=== PATIENT | female | born 1990 | race Caucasian/White ===

== ENCOUNTER 2023-01-08 17:47 | Emergency (ER) | payer OTHER ==
[~2023-01-08] VITALS: Ht 160 cm; Wt 56.8 kg
[2023-01-08] MEDS ORDERED: NEUR300C PO (18:10)
[2023-01-08] MEDS ORDERED: IBUP-1022 PO (21:14)
[2023-01-08 21:20] VITALS: BP 101/70; TEMP 98.1; O2SAT 100
== END 2023-01-08 21:30 | disposition home or self-care (01) ==
LOC: M ED 17:47
DX: M75.102 Unspecified rotator cuff tear or rupture of left shoulder, not specified as traumatic (principal); M19.90 Unspecified osteoarthritis, unspecified site; Z88.8 Allergy status to other drugs, medicaments and biological substances

== ENCOUNTER 2023-02-01 18:20 | Emergency (ER) | payer OTHER ==
[~2023-02-01] VITALS: Ht 160 cm; Wt 57.0 kg
[~2023-02-01 18:20] MED LIST: BENA25CA4 PO; IBUP-1022 PO; NEUR300C PO; PERCOCET PO
[2023-02-01 18:21] VITALS: BP 125/85; TEMP 98.6; O2SAT 99
== END 2023-02-01 21:42 | disposition left against medical advice (07) ==
LOC: M ED 18:20
DX: Z53.21 Procedure and treatment not carried out due to patient leaving prior to being seen by health care provider (principal)

== ENCOUNTER → 2023-02-10 | Outpatient (CLI) | payer OTHER ==
[2023-02-10 15:27] LABS: BASO % 0.3 % (0.0-1.0); EOS # 0.1 10^3/uL (0.0-0.5); EOS % 1.1 % (0.0-3.0); HEMATOCRIT 39.7 % (36.0-47.0); HEMOGLOBIN 13.7 g/dl (12.0-15.5); LYMPH # 2.2 10^3/uL (1.5-5.0); LYMPH % 34.7 % (24.0-44.0); MEAN CORPUSCULAR HEMOGLOBIN 32.5 pg (27.0-33.0); MEAN CORPUSCULAR HGB CONC 34.5 g/dl (32.0-36.5); MEAN CORPUSCULAR VOLUME 94.3 fl (80.0-96.0); MONO # 0.4 10^3/uL (0.0-0.8); MONO % 5.6 % (2.0-8.0); NEUTROPHILS # 3.6 10^3/uL (1.5-8.5); NEUTROPHILS % 58.1 % (36.0-66.0); PLATELET COUNT, AUTOMATED 299 10^3/uL (150-450); RED BLOOD COUNT 4.21 10^6/uL (4.00-5.40); WHITE BLOOD COUNT 6.3 10^3/uL (4.0-10.0)
[2023-02-10 15:55] LABS: ALBUMIN 3.9 G/DL (3.2-5.2); ALKALINE PHOSPHATASE 77 U/L (46-116); ALT/SGPT 13 U/L (7.0-40); AST/SGOT 14 U/L (<34); BILIRUBIN,TOTAL 1.5 MG/DL (0.3-1.2); BLOOD UREA NITROGEN 12 MG/DL (9-23); CALCIUM LEVEL 9.4 MG/DL (8.5-10.1); CARBON DIOXIDE LEVEL 29 MMOL/L (20-31); CHLORIDE LEVEL 106 MMOL/L (98-107); GLOMERULAR FILTRATION RATE > 60.0 (>60); GLUCOSE, FASTING 85 MG/DL (60-100); POTASSIUM SERUM 4.2 MMOL/L (3.5-5.1); SODIUM LEVEL 141 MMOL/L (136-145); TOTAL PROTEIN 6.9 G/DL (5.7-8.2)
== END ==
LOC: M LAB 14:36
PROVIDERS: ATTEND Physician Assistant
DX: R10.84 Generalized abdominal pain (principal)

== ENCOUNTER 2023-04-25 22:41 | Emergency (ER) | payer OTHER ==
[~2023-04-25] VITALS: Ht 160 cm; Wt 56.8 kg
[~2023-04-25 22:41] MED LIST changes: +LOPE-39 PO
[2023-04-25 23:01] VITALS: TEMP 98.9
[2023-04-25] MEDS ORDERED: METOPROLOL 5 MG/5 ML VIAL IV SCH (23:55)
[2023-04-26 00:12] LABS: BASO % 0.4 % (0.0-1.0); EOS # 0.5 10^3/uL (0.0-0.5); EOS % 5.9 % (0.0-3.0); HEMATOCRIT 37.6 % (36.0-47.0); HEMOGLOBIN 13.2 g/dl (12.0-15.5); LYMPH # 2.4 10^3/uL (1.5-5.0); LYMPH % 30.1 % (24.0-44.0); MEAN CORPUSCULAR HEMOGLOBIN 32.9 pg (27.0-33.0); MEAN CORPUSCULAR HGB CONC 35.1 g/dl (32.0-36.5); MEAN CORPUSCULAR VOLUME 93.8 fl (80.0-96.0); MONO # 0.5 10^3/uL (0.0-0.8); MONO % 6.5 % (2.0-8.0); NEUTROPHILS # 4.5 10^3/uL (1.5-8.5); NEUTROPHILS % 56.1 % (36.0-66.0); PLATELET COUNT, AUTOMATED 292 10^3/uL (150-450); RED BLOOD COUNT 4.01 10^6/uL (4.00-5.40)
[2023-04-26 00:14] LABS: INR 1.02; PARTIAL THROMBOPLASTIN TIME 28.2 SECONDS (24.8-34.2); PROTHROMBIN TIME 13.1 SECONDS (12.5-14.5)
[2023-04-26 00:20] VITALS: BP 113/79
[2023-04-26 00:24] LABS: CK-MB VALUE MASS 3.2 NG/ML (<3.6)
[2023-04-26 00:26] VITALS: O2SAT 98
[2023-04-26 00:26] LABS: ALBUMIN 3.9 G/DL (3.2-5.2); ALKALINE PHOSPHATASE 58 U/L (46-116); ALT/SGPT 16 U/L (7.0-40); AST/SGOT 34 U/L (<34); BILIRUBIN,DIRECT 0.3 MG/DL (<0.4); BLOOD UREA NITROGEN 10 MG/DL (9-23); CALCIUM LEVEL 9.1 MG/DL (8.5-10.1); CARBON DIOXIDE LEVEL 24 MMOL/L (20-31); CHLORIDE LEVEL 110 MMOL/L (98-107); CPK CREATINE PHOSPHOKINASE 752 U/L (34-145); CREATININE FOR GFR 0.54 MG/DL (0.55-1.30); GLOMERULAR FILTRATION RATE > 60.0 (>60); GLUCOSE, FASTING 96 MG/DL (60-100); MB/CK RELATIVE INDEX 0.42 (< OR =4); POTASSIUM SERUM 3.5 MMOL/L (3.5-5.1); SODIUM LEVEL 142 MMOL/L (136-145); TOTAL PROTEIN 6.5 G/DL (5.7-8.2)
[2023-04-26 00:28] LABS: FREE T4 1.03 NG/DL (0.89-1.76); THYROID STIMULATING HORMONE 1.272 uIU/ML (0.55-4.78)
[2023-04-26] MEDS ORDERED: atenoloL 25 MG TAB PO ONE (00:45)
[2023-04-26] MEDS ORDERED: ATEN25TA PO (00:48)
[2023-04-26] MEDS ORDERED: HOLTER MONITOR XX (00:53)
[2023-04-26 01:12] VITALS: BP 142/72
== END 2023-04-26 01:38 | disposition home or self-care (01) ==
LOC: EDBD 22:41 → M ED 22:41
DX: I47.10 Supraventricular tachycardia, unspecified (principal); G43.909 Migraine, unspecified, not intractable, without status migrainosus; F17.200 Nicotine dependence, unspecified, uncomplicated; Z88.8 Allergy status to other drugs, medicaments and biological substances; Z79.899 Other long term (current) drug therapy

== ENCOUNTER 2023-04-26 23:56 | Emergency (ER) | payer OTHER ==
[~2023-04-26] VITALS: Ht 160 cm; Wt 61.4 kg
[2023-04-27 00:31] LABS: BASO % 0.3 % (0.0-1.0); EOS # 0.6 10^3/uL (0.0-0.5); EOS % 9.5 % (0.0-3.0); HEMOGLOBIN 12.9 g/dl (12.0-15.5); LYMPH # 2.9 10^3/uL (1.5-5.0); LYMPH % 44.9 % (24.0-44.0); MEAN CORPUSCULAR HGB CONC 34.9 g/dl (32.0-36.5); MEAN CORPUSCULAR VOLUME 94.6 fl (80.0-96.0); MONO # 0.4 10^3/uL (0.0-0.8); MONO % 6.9 % (2.0-8.0); NEUTROPHILS # 2.5 10^3/uL (1.5-8.5); NEUTROPHILS % 38.2 % (36.0-66.0); PLATELET COUNT, AUTOMATED 287 10^3/uL (150-450); RED BLOOD COUNT 3.91 10^6/uL (4.00-5.40); WHITE BLOOD COUNT 6.4 10^3/uL (4.0-10.0)
[2023-04-27 00:55] LABS: BLOOD UREA NITROGEN 9 MG/DL (9-23); CALCIUM LEVEL 8.9 MG/DL (8.5-10.1); CARBON DIOXIDE LEVEL 23 MMOL/L (20-31); CHLORIDE LEVEL 108 MMOL/L (98-107); CK-MB VALUE MASS < 1.0 NG/ML (<3.6); CPK CREATINE PHOSPHOKINASE 799 U/L (34-145); CREATININE FOR GFR 0.55 MG/DL (0.55-1.30); GLOMERULAR FILTRATION RATE > 60.0 (>60); GLUCOSE, FASTING 108 MG/DL (60-100); MB/CK RELATIVE INDEX 0.12 (< OR =4); POTASSIUM SERUM 3.7 MMOL/L (3.5-5.1); SODIUM LEVEL 139 MMOL/L (136-145)
[2023-04-27 00:56] LABS: HCG, SERUM QUALITATIVE NEGATIVE (NEGATIVE)
[2023-04-27] MEDS ORDERED: ONDANSETRON 4MG 2ML VIAL IV ONE (01:25)
[2023-04-27 07:40] LABS: MAGNESIUM LEVEL 1.7 MG/DL (1.8-2.4)
[2023-04-27] MEDS ORDERED: MAG SULF 1GM/100ML (MAG RUN) 1 GM in IV 1 EA IV ONE (07:45)
[2023-04-27] MEDS ORDERED: NS 1,000 ML IV ONE (08:10)
[2023-04-27 09:35] VITALS: BP 94/51; TEMP 99.3; O2SAT 98
== END 2023-04-27 09:35 | disposition home or self-care (01) ==
LOC: M ED 23:56
DX: R00.2 Palpitations (principal); E83.42 Hypomagnesemia; F17.200 Nicotine dependence, unspecified, uncomplicated; Z88.8 Allergy status to other drugs, medicaments and biological substances; Z79.899 Other long term (current) drug therapy
CPT/HCPCS: 80048; 82550; 82553; 83735; 84484; 84703; 85025; 87486; 87581; 87633; 87798; 93005; 93041; 94760; 96374; 99285; J2405; J3475

== ENCOUNTER → 2023-04-26 | Outpatient (CLI) | payer OTHER ==
[~2023-04-26] MED LIST changes: +ATEN25TA PO; +HOLTER MONITOR XX
== END ==
LOC: M RAD 15:15
PROVIDERS: ATTEND Emergency Medicine
DX: R00.2 Palpitations (principal)

== ENCOUNTER 2023-05-01 04:21 | Emergency (ER) | payer OTHER ==
[~2023-05-01] VITALS: Ht 160 cm; Wt 56.8 kg
[2023-05-01 04:30] VITALS: BP 118/59; TEMP 98.6; O2SAT 97
[2023-05-01 05:07] LABS: BASO % 0.5 % (0.0-1.0); EOS # 0.4 10^3/uL (0.0-0.5); EOS % 6.1 % (0.0-3.0); HEMATOCRIT 37.2 % (36.0-47.0); HEMOGLOBIN 13.1 g/dl (12.0-15.5); LYMPH % 50.4 % (24.0-44.0); MEAN CORPUSCULAR HEMOGLOBIN 33.1 pg (27.0-33.0); MEAN CORPUSCULAR HGB CONC 35.2 g/dl (32.0-36.5); MEAN CORPUSCULAR VOLUME 93.9 fl (80.0-96.0); MONO # 0.4 10^3/uL (0.0-0.8); MONO % 6.2 % (2.0-8.0); NEUTROPHILS # 2.2 10^3/uL (1.5-8.5); NEUTROPHILS % 36.6 % (36.0-66.0); PLATELET COUNT, AUTOMATED 299 10^3/uL (150-450); RED BLOOD COUNT 3.96 10^6/uL (4.00-5.40); WHITE BLOOD COUNT 5.9 10^3/uL (4.0-10.0)
[2023-05-01 05:30] LABS: BLOOD UREA NITROGEN 12 MG/DL (9-23); CALCIUM LEVEL 8.9 MG/DL (8.5-10.1); CARBON DIOXIDE LEVEL 24 MMOL/L (20-31); CHLORIDE LEVEL 110 MMOL/L (98-107); CK-MB VALUE MASS < 1.0 NG/ML (<3.6); CREATININE FOR GFR 0.51 MG/DL (0.55-1.30); GLOMERULAR FILTRATION RATE > 60.0 (>60); GLUCOSE, FASTING 90 MG/DL (60-100); POTASSIUM SERUM 3.9 MMOL/L (3.5-5.1); SODIUM LEVEL 142 MMOL/L (136-145)
[2023-05-01 05:34] LABS: CPK CREATINE PHOSPHOKINASE 82 U/L (34-145); MB/CK RELATIVE INDEX 1.21 (< OR =4)
== END 2023-05-01 06:28 | disposition left against medical advice (07) ==
LOC: M ED 04:21 → EDBD 04:21 → M ED 06:28
DX: Z53.21 Procedure and treatment not carried out due to patient leaving prior to being seen by health care provider (principal)

== ENCOUNTER 2023-05-04 07:57 | Emergency (ER) | payer OTHER ==
[2023-05-04 11:25] VITALS: TEMP 97.4
[2023-05-04 13:03] LABS: HEMATOCRIT 42.1 % (36.0-47.0); MEAN CORPUSCULAR HEMOGLOBIN 32.8 pg (27.0-33.0); MEAN CORPUSCULAR HGB CONC 35.6 g/dl (32.0-36.5); MEAN CORPUSCULAR VOLUME 92.1 fl (80.0-96.0); PLATELET COUNT, AUTOMATED 316 10^3/uL (150-450); RED BLOOD COUNT 4.57 10^6/uL (4.00-5.40); WHITE BLOOD COUNT 5.9 10^3/uL (4.0-10.0)
[2023-05-04 13:34] LABS: BLOOD UREA NITROGEN 12 MG/DL (9-23); CALCIUM LEVEL 9.7 MG/DL (8.5-10.1); CARBON DIOXIDE LEVEL 22 MMOL/L (20-31); CHLORIDE LEVEL 105 MMOL/L (98-107); CK-MB VALUE MASS < 1.0 NG/ML (<3.6); CREATININE FOR GFR 0.59 MG/DL (0.55-1.30); GLOMERULAR FILTRATION RATE > 60.0 (>60); GLUCOSE, FASTING 94 MG/DL (60-100); SODIUM LEVEL 136 MMOL/L (136-145)
[2023-05-04 13:35] LABS: CPK CREATINE PHOSPHOKINASE 44 U/L (34-145); MB/CK RELATIVE INDEX 2.27 (< OR =4)
[2023-05-04 14:15] VITALS: BP 98/75; O2SAT 99
== END 2023-05-04 15:11 | disposition home or self-care (01) ==
LOC: M ED 07:57
DX: R00.2 Palpitations (principal); I51.7 Cardiomegaly; Z88.8 Allergy status to other drugs, medicaments and biological substances

== ENCOUNTER 2023-05-19 15:58 | Emergency (ER) | payer OTHER ==
[~2023-05-19] VITALS: Ht 160 cm; Wt 54.5 kg
[2023-05-19 16:08] VITALS: BP 110/75; TEMP 97.9; O2SAT 99
[2023-05-19] MEDS ORDERED: SOD175SO (16:13)
[2023-05-19] MEDS ORDERED: OMEP-173 (16:13)
[2023-05-19] MEDS ORDERED: MIRT1TAB15 (16:13)
== END 2023-05-19 16:14 | disposition left against medical advice (07) ==
LOC: EDBD 15:58 → M ED 15:58
DX: Z53.21 Procedure and treatment not carried out due to patient leaving prior to being seen by health care provider (principal)

== ENCOUNTER 2023-05-25 01:54 | Emergency (ER) | payer OTHER ==
[~2023-05-25] VITALS: Ht 160 cm; Wt 54.5 kg
[~2023-05-25 01:54] MED LIST changes: +MIRT1TAB15; +OMEP-173; +SOD175SO
[2023-05-25] MEDS ORDERED: LIDOCAINE 5% (LIDODERM) PATCH TD ONE (06:10)
[2023-05-25] MEDS ORDERED: diazePAM 5MG TABLET PO ONE (06:10)
[2023-05-25] MEDS ORDERED: KETOROLAC 30 MG/ML 1ML VIAL IV ONE (06:10)
[2023-05-25 06:41] LABS: HCG, SERUM QUALITATIVE NEGATIVE (NEGATIVE)
[2023-05-25] MEDS ORDERED: KETOROLAC 30 MG/ML 1ML VIAL IM ONE (06:55)
[2023-05-25] MEDS ORDERED: VALI5TAB PO (10:51)
[2023-05-25] MEDS ORDERED: IBUP-1114 PO (10:51)
[2023-05-25] MEDS ORDERED: LIDO5DIS41 TOP (10:51)
[2023-05-25] MEDS ORDERED: ACET325C5 PO (10:51)
[2023-05-25 11:22] VITALS: BP 97/60; TEMP 97.3; O2SAT 99
[2023-05-26] MEDS ORDERED: LIDOCAINE 2% 100MG/5ML SDV (FOR ANES.) As Ordered ONE (09:41)
[2023-05-26] MEDS ORDERED: propofoL 200 MG/20 ML VIAL As Ordered ONE (09:41)
[2023-05-26] MEDS ORDERED: GLYCOPYRROLATE INJ 0.2 MG/ML 2 ML VIAL As Ordered ONE (09:41)
== END 2023-05-25 11:30 | disposition home or self-care (01) ==
LOC: M ED 01:54
DX: M51.16 Intervertebral disc disorders with radiculopathy, lumbar region (principal); I47.10 Supraventricular tachycardia, unspecified; Z79.899 Other long term (current) drug therapy; Z79.1 Long term (current) use of non-steroidal anti-inflammatories (NSAID); Z88.1 Allergy status to other antibiotic agents
CPT/HCPCS: 72148; 84703; 96374; 99284; J1885

== ENCOUNTER 2023-05-26 08:59 | Day surgery (SDC) | payer OTHER ==
[~2023-05-26] VITALS: Ht 160 cm; Wt 53.2 kg
[~2023-05-26 08:59] MED LIST changes: +ACET325C5 PO; +IBUP-1114 PO; +LIDO5DIS41 TOP; +NS 1,000 ML IV ONE; +VALI5TAB PO
[2023-05-26 10:28] VITALS: TEMP 98.5
[2023-05-26 10:51] VITALS: BP 110/76; O2SAT 100
== END 2023-05-26 11:13 | disposition home or self-care (01) ==
LOC: M OPP 08:59
PROVIDERS: ATTEND Internal Medicine Gastroenterology
DX: K64.4 Residual hemorrhoidal skin tags (principal); K64.8 Other hemorrhoids; K92.1 Melena; K29.70 Gastritis, unspecified, without bleeding; R13.10 Dysphagia, unspecified; Z79.899 Other long term (current) drug therapy; Z88.5 Allergy status to narcotic agent

== ENCOUNTER → 2023-06-09 | Outpatient (CLI) | payer OTHER ==
[~2023-06-09] MED LIST changes: -NS 1,000 ML IV ONE
== END ==
LOC: M RAD 18:09
PROVIDERS: ATTEND Orthopaedic Surgery
DX: S43.62XA Sprain of left sternoclavicular joint, initial encounter (principal); Y93.9 Activity, unspecified; Y92.9 Unspecified place or not applicable

== ENCOUNTER → 2023-06-10 | Outpatient (CLI) | payer OTHER | LOC: M RAD 14:24 | PROVIDERS: ATTEND Physician Assistant Medical | DX: M25.512 Pain in left shoulder (principal) ==

== ENCOUNTER 2023-06-16 07:53 | Emergency (ER) | payer OTHER ==
[~2023-06-16] VITALS: Ht 160 cm; Wt 57.5 kg
[2023-06-16] MEDS ORDERED: OMEP40CA5 PO (08:04)
[2023-06-16] MEDS ORDERED: AMOX500C PO (08:04)
[2023-06-16] MEDS ORDERED: CLAR500T97 PO (08:04)
[2023-06-16 08:29] LABS: BASO % 0.2 % (0.0-1.0); EOS % 0.7 % (0.0-3.0); HEMATOCRIT 38.5 % (36.0-47.0); HEMOGLOBIN 13.4 g/dl (12.0-15.5); LYMPH # 2.2 10^3/uL (1.5-5.0); LYMPH % 35.5 % (24.0-44.0); MEAN CORPUSCULAR HEMOGLOBIN 32.3 pg (27.0-33.0); MEAN CORPUSCULAR HGB CONC 34.8 g/dl (32.0-36.5); MEAN CORPUSCULAR VOLUME 92.8 fl (80.0-96.0); MONO # 0.4 10^3/uL (0.0-0.8); MONO % 5.9 % (2.0-8.0); NEUTROPHILS # 3.5 10^3/uL (1.5-8.5); NEUTROPHILS % 57.5 % (36.0-66.0); PLATELET COUNT, AUTOMATED 282 10^3/uL (150-450); RED BLOOD COUNT 4.15 10^6/uL (4.00-5.40); WHITE BLOOD COUNT 6.1 10^3/uL (4.0-10.0)
[2023-06-16] MEDS: NS 1,000 ML IV ONE (08:31)
[2023-06-16] MEDS: MORPHINE 2 MG/ML 1ML VIAL IV ONE (08:36)
[2023-06-16 08:40] LABS: INR 0.98; PROTHROMBIN TIME 12.7 SECONDS (12.5-14.5)
[2023-06-16 08:41] LABS: PARTIAL THROMBOPLASTIN TIME 26.9 SECONDS (24.8-34.2)
[2023-06-16] MEDS ORDERED: MELO15TA28 PO (08:43)
[2023-06-16] MEDS ORDERED: ONDA4TAB6 PO (08:43)
[2023-06-16] MEDS ORDERED: MAGN400C2 PO (08:43)
[2023-06-16 09:02] LABS: CK-MB VALUE MASS < 1.0 NG/ML (<3.6)
[2023-06-16 09:04] LABS: CPK CREATINE PHOSPHOKINASE 84 U/L (34-145); MB/CK RELATIVE INDEX 1.19 (< OR =4)
[2023-06-16 09:06] LABS: FREE T4 1.05 NG/DL (0.89-1.76); THYROID STIMULATING HORMONE 1.469 uIU/ML (0.55-4.78)
[2023-06-16 09:07] LABS: ALBUMIN 4.1 G/DL (3.2-5.2); ALKALINE PHOSPHATASE 60 U/L (46-116); ALT/SGPT 16 U/L (7.0-40); AST/SGOT 14 U/L (<34); BILIRUBIN,DIRECT 0.5 MG/DL (<0.4); BILIRUBIN,TOTAL 1.5 MG/DL (0.3-1.2); BLOOD UREA NITROGEN < 5 MG/DL (9-23); CALCIUM LEVEL 9.4 MG/DL (8.5-10.1); CARBON DIOXIDE LEVEL 28 MMOL/L (20-31); CHLORIDE LEVEL 106 MMOL/L (98-107); CREATININE FOR GFR 0.79 MG/DL (0.55-1.30); GLOMERULAR FILTRATION RATE > 60.0 (>60); GLUCOSE, FASTING 102 MG/DL (60-100); MAGNESIUM LEVEL 1.8 MG/DL (1.8-2.4); POTASSIUM SERUM 3.6 MMOL/L (3.5-5.1); SODIUM LEVEL 140 MMOL/L (136-145); TOTAL PROTEIN 6.8 G/DL (5.7-8.2)
[2023-06-16] MEDS ORDERED: ISOVUE-370 76% 100ML VIAL As Ordered ONE (09:22)
[2023-06-16 10:11] LABS: LIPASE 26 U/L (12-53)
[2023-06-16] MEDS: MORPHINE 4 MG/ML 1ML VIAL IV ONE (11:17)
[2023-06-16 11:59] LABS: CK-MB VALUE MASS < 1.0 NG/ML (<3.6); CPK CREATINE PHOSPHOKINASE 70 U/L (34-145); MB/CK RELATIVE INDEX 1.42 (< OR =4)
[2023-06-16] MEDS ORDERED: ATEN25TA PO (13:36)
[2023-06-16] MEDS ORDERED: MAGN400T2 PO (13:36)
[2023-06-16] MEDS ORDERED: HOME MED LIST COMPLETE! XX SCH (13:40)
[2023-06-16 14:11] LABS: CK-MB VALUE MASS < 1.0 NG/ML (<3.6)
[2023-06-16 14:12] LABS: CPK CREATINE PHOSPHOKINASE 83 U/L (34-145)
[2023-06-16 15:00] VITALS: BP 96/69; TEMP 98.1; O2SAT 96
== END 2023-06-16 15:10 | disposition home or self-care (01) ==
LOC: EDBD 07:53 → M ED 07:53
DX: R00.0 Tachycardia, unspecified (principal); Z86.19 Personal history of other infectious and parasitic diseases; Z88.8 Allergy status to other drugs, medicaments and biological substances
CPT/HCPCS: 71045; 71275; 74177; 74181; 80048; 80076; 81001; 82550; 82553; 83690; 83735; 84100; 84439; 84443; 84484; 84702; 85025; 85610; 85730; 93005; 93041; 94760; 96361; 96374; 96376; 99285; Q9967

== ENCOUNTER 2023-06-19 22:42 | Emergency (ER) | payer OTHER ==
[~2023-06-19] VITALS: Ht 160 cm; Wt 54.5 kg
[~2023-06-19 22:42] MED LIST changes: +AMOX500C PO; +CLAR500T97 PO; +MAGN400C2 PO; +MAGN400T2 PO; +MELO15TA28 PO; +OMEP40CA5 PO; +ONDA4TAB6 PO
[2023-06-20 00:28] LABS: BASO % 0.4 % (0.0-1.0); EOS # 0.1 10^3/uL (0.0-0.5); HEMATOCRIT 35.1 % (36.0-47.0); HEMOGLOBIN 12.9 g/dl (12.0-15.5); LYMPH # 2.2 10^3/uL (1.5-5.0); LYMPH % 43.2 % (24.0-44.0); MEAN CORPUSCULAR HEMOGLOBIN 33.1 pg (27.0-33.0); MEAN CORPUSCULAR HGB CONC 36.8 g/dl (32.0-36.5); MONO # 0.3 10^3/uL (0.0-0.8); MONO % 6.3 % (2.0-8.0); NEUTROPHILS # 2.5 10^3/uL (1.5-8.5); NEUTROPHILS % 48.9 % (36.0-66.0); PLATELET COUNT, AUTOMATED 252 10^3/uL (150-450); WHITE BLOOD COUNT 5.1 10^3/uL (4.0-10.0)
[2023-06-20 00:35] LABS: CK-MB VALUE MASS < 1.0 NG/ML (<3.6)
[2023-06-20 00:37] LABS: BLOOD UREA NITROGEN 6 MG/DL (9-23); CALCIUM LEVEL 9.1 MG/DL (8.5-10.1); CARBON DIOXIDE LEVEL 23 MMOL/L (20-31); CHLORIDE LEVEL 110 MMOL/L (98-107); CPK CREATINE PHOSPHOKINASE 72 U/L (34-145); CREATININE FOR GFR 0.63 MG/DL (0.55-1.30); GLOMERULAR FILTRATION RATE > 60.0 (>60); GLUCOSE, FASTING 95 MG/DL (60-100); MB/CK RELATIVE INDEX 1.38 (< OR =4); POTASSIUM SERUM 3.5 MMOL/L (3.5-5.1); SODIUM LEVEL 141 MMOL/L (136-145)
[2023-06-20 01:29] LABS: LIPASE 33 U/L (12-53)
[2023-06-20 01:31] LABS: ALKALINE PHOSPHATASE 59 U/L (46-116); ALT/SGPT 11 U/L (7.0-40); AST/SGOT 10 U/L (<34); BILIRUBIN,DIRECT 0.4 MG/DL (<0.4); BILIRUBIN,TOTAL 1.1 MG/DL (0.3-1.2); TOTAL PROTEIN 6.9 G/DL (5.7-8.2)
[2023-06-20] MEDS: LORazepam 2 MG/ML 1ML VIAL IV STA ×2 (02:34→08:05)
[2023-06-20] MEDS: METOCLOPRAMIDE INJ 10MG/2ML VIAL IV ONE (02:35)
[2023-06-20 03:21] LABS: CK-MB VALUE MASS < 1.0 NG/ML (<3.6)
[2023-06-20 03:23] LABS: CPK CREATINE PHOSPHOKINASE 68 U/L (34-145); MB/CK RELATIVE INDEX 1.47 (< OR =4)
[2023-06-20 06:57] LABS: ALBUMIN 3.1 G/DL (3.2-5.2); BILIRUBIN,DIRECT 0.2 MG/DL (<0.4); BILIRUBIN,TOTAL 0.9 MG/DL (0.3-1.2); TOTAL PROTEIN 5.5 G/DL (5.7-8.2)
[2023-06-20 10:05] VITALS: BP 96/62; TEMP 98.6; O2SAT 98
== END 2023-06-20 10:20 | disposition home or self-care (01) ==
LOC: EDBD 22:42 → M ED 22:42
DX: F43.0 Acute stress reaction (principal); R10.10 Upper abdominal pain, unspecified; I45.10 Unspecified right bundle-branch block; Z88.8 Allergy status to other drugs, medicaments and biological substances; Z79.2 Long term (current) use of antibiotics; Z79.83 Long term (current) use of bisphosphonates; Z79.899 Other long term (current) drug therapy
CPT/HCPCS: 71045; 74181; 76705; 80048; 80076; 82550; 82553; 83690; 84484; 85025; 93005; 93041; 94760; 96374; 96375; 99285; J2060; J2765

== ENCOUNTER 2023-06-28 05:26 | Emergency (ER) | payer OTHER ==
[~2023-06-28] VITALS: Ht 160 cm; Wt 52.3 kg
[2023-06-28 05:32] VITALS: TEMP 98.9
[2023-06-28 07:24] LABS: BASO % 0.2 % (0.0-1.0); EOS # 0.1 10^3/uL (0.0-0.5); EOS % 1.6 % (0.0-3.0); HEMATOCRIT 34.9 % (36.0-47.0); HEMOGLOBIN 12.3 g/dl (12.0-15.5); LYMPH # 2.1 10^3/uL (1.5-5.0); LYMPH % 42.3 % (24.0-44.0); MEAN CORPUSCULAR HGB CONC 35.2 g/dl (32.0-36.5); MEAN CORPUSCULAR VOLUME 93.6 fl (80.0-96.0); MONO # 0.3 10^3/uL (0.0-0.8); MONO % 6.6 % (2.0-8.0); NEUTROPHILS # 2.4 10^3/uL (1.5-8.5); NEUTROPHILS % 49.3 % (36.0-66.0); PLATELET COUNT, AUTOMATED 243 10^3/uL (150-450); RED BLOOD COUNT 3.73 10^6/uL (4.00-5.40); WHITE BLOOD COUNT 4.9 10^3/uL (4.0-10.0)
[2023-06-28 07:31] LABS: FREE T4 0.93 NG/DL (0.89-1.76); THYROID STIMULATING HORMONE 1.102 uIU/ML (0.55-4.78)
[2023-06-28] MEDS: NS 1,000 ML IV ONE (07:41)
[2023-06-28 07:52] LABS: BLOOD UREA NITROGEN < 5 MG/DL (9-23); CALCIUM LEVEL 8.6 MG/DL (8.5-10.1); CARBON DIOXIDE LEVEL 24 MMOL/L (20-31); CHLORIDE LEVEL 111 MMOL/L (98-107); CREATININE FOR GFR 0.61 MG/DL (0.55-1.30); GLOMERULAR FILTRATION RATE > 60.0 (>60); GLUCOSE, FASTING 90 MG/DL (60-100); POTASSIUM SERUM 3.4 MMOL/L (3.5-5.1); SODIUM LEVEL 141 MMOL/L (136-145)
[2023-06-28] MEDS: atenoloL 25 MG TAB PO ONE (08:06)
[2023-06-28 08:55] LABS: CK-MB VALUE MASS < 1.0 NG/ML (<3.6)
[2023-06-28 08:56] LABS: CPK CREATINE PHOSPHOKINASE 45 U/L (34-145); MB/CK RELATIVE INDEX 2.22 (< OR =4)
[2023-06-28 10:15] VITALS: BP 92/54; O2SAT 99
[2023-06-28] MEDS ORDERED: HOLTER MONITOR XX (10:29)
== END 2023-06-28 10:45 | disposition home or self-care (01) ==
LOC: M ED 05:26
DX: K92.2 Gastrointestinal hemorrhage, unspecified (principal); I47.9 Paroxysmal tachycardia, unspecified; K21.9 Gastro-esophageal reflux disease without esophagitis; Z88.8 Allergy status to other drugs, medicaments and biological substances

== ENCOUNTER 2023-07-26 16:33 | Inpatient (IN) | payer OTHER ==
[~2023-07-26] VITALS: Ht 160 cm; Wt 53.1 kg
[2023-07-26 17:59] LABS: BASO % 0.2 % (0.0-1.0); EOS % 0.5 % (0.0-3.0); HEMATOCRIT 38.9 % (36.0-47.0); HEMOGLOBIN 13.5 g/dl (12.0-15.5); LYMPH # 1.6 10^3/uL (1.5-5.0); LYMPH % 28.3 % (24.0-44.0); MEAN CORPUSCULAR HEMOGLOBIN 32.1 pg (27.0-33.0); MEAN CORPUSCULAR HGB CONC 34.7 g/dl (32.0-36.5); MEAN CORPUSCULAR VOLUME 92.6 fl (80.0-96.0); MONO # 0.4 10^3/uL (0.0-0.8); MONO % 6.8 % (2.0-8.0); NEUTROPHILS # 3.7 10^3/uL (1.5-8.5); PLATELET COUNT, AUTOMATED 234 10^3/uL (150-450); WHITE BLOOD COUNT 5.8 10^3/uL (4.0-10.0)
[2023-07-26 18:12] LABS: LIPASE 57 U/L (12-53)
[2023-07-26 18:15] LABS: ALKALINE PHOSPHATASE 63 U/L (46-116); ALT/SGPT 12 U/L (7.0-40); AST/SGOT 20 U/L (<34); BILIRUBIN,DIRECT 0.8 MG/DL (<0.4); BILIRUBIN,TOTAL 2.8 MG/DL (0.3-1.2); BLOOD UREA NITROGEN 9 MG/DL (9-23); CALCIUM LEVEL 8.9 MG/DL (8.5-10.1); CARBON DIOXIDE LEVEL 26 MMOL/L (20-31); CHLORIDE LEVEL 104 MMOL/L (98-107); CREATININE FOR GFR 0.61 MG/DL (0.55-1.30); GLOMERULAR FILTRATION RATE > 60.0 (>60); GLUCOSE, FASTING 72 MG/DL (60-100); POTASSIUM SERUM 3.9 MMOL/L (3.5-5.1); SODIUM LEVEL 136 MMOL/L (136-145); TOTAL PROTEIN 6.9 G/DL (5.7-8.2)
[2023-07-26] MEDS ORDERED: LEXA1TAB (19:29)
[2023-07-26] MEDS ORDERED: CLON0.5T2 (19:29)
[2023-07-26] MEDS: METOCLOPRAMIDE INJ 10MG/2ML VIAL IV ONE (21:29)
[2023-07-26] MEDS: MORPHINE 2 MG/ML 1ML VIAL IV ONE (21:29)
[2023-07-26] MEDS: NS 1,000 ML IV ONE (21:30)
[2023-07-26] MEDS: GASTROGRAFIN SOLUTION 30ML PO SCH (21:40)
[2023-07-26] MEDS ORDERED: ISOVUE-370 76% 100ML VIAL As Ordered ONE (22:38)
[2023-07-27] MEDS: PROMETHAZINE 25MG/ML 1ML VIAL IV ONE (02:37)
[2023-07-27] MEDS: MORPHINE 2 MG/ML 1ML VIAL IV ONE (02:38)
[2023-07-27] MEDS ORDERED: IBUPROFEN 400MG TAB PO PRN (03:30)
[2023-07-27] MEDS ORDERED: KETOROLAC 30 MG/ML 1ML VIAL IV PRN (03:30)
[2023-07-27] MEDS: LR 1,000 ML IV SCH (04:54)
[2023-07-27] MEDS ORDERED: LEXA1TAB PO (06:20)
[2023-07-27] MEDS ORDERED: CLON0.5T2 PO (06:20)
[2023-07-27] MEDS ORDERED: MULT-40 PO (06:20)
[2023-07-27] MEDS ORDERED: HOME MED LIST COMPLETE! XX SCH (06:25)
[2023-07-27] MEDS ORDERED: LORazepam 2 MG/ML 1ML VIAL IV STA (08:13)
[2023-07-27] MEDS: LORazepam 2 MG/ML 1ML VIAL IV STA (08:26)
[2023-07-27] MEDS: PIPERACILLIN/TAZOBACTAM SOD 4.5 GM in D5W MINI-BAG PLUS 50 ML IV SCH (09:26)
[2023-07-27 10:56] VITALS: BP 102/67; TEMP 98.1; O2SAT 100
[2023-07-27] MEDS: KETOROLAC 30 MG/ML 1ML VIAL IV PRN (13:36)
[2023-07-27] MEDS: PANTOPRAZOLE 40MG TAB (PROTONIX) PO SCH (13:50)
[2023-07-27 14:30] VITALS: BP 102/65; TEMP 98.1; O2SAT 100
[2023-07-27] MEDS: SUCRALFATE 1 GM TAB PO SCH (18:33)
[2023-07-28 06:00] VITALS: BP 105/68; TEMP 98.2; O2SAT 100
[2023-07-28 06:32] LABS: HEMATOCRIT 33.8 % (36.0-47.0); HEMOGLOBIN 11.6 g/dl (12.0-15.5); MEAN CORPUSCULAR HEMOGLOBIN 32.7 pg (27.0-33.0); MEAN CORPUSCULAR HGB CONC 34.3 g/dl (32.0-36.5); MEAN CORPUSCULAR VOLUME 95.2 fl (80.0-96.0); PLATELET COUNT, AUTOMATED 207 10^3/uL (150-450); RED BLOOD COUNT 3.55 10^6/uL (4.00-5.40); WHITE BLOOD COUNT 4.9 10^3/uL (4.0-10.0)
[2023-07-28 06:55] LABS: PROCALCITONIN <0.04 ng/ml
[2023-07-28 06:56] LABS: ALBUMIN 3.3 G/DL (3.2-5.2); ALKALINE PHOSPHATASE 46 U/L (46-116); ALT/SGPT 10 U/L (7.0-40); AST/SGOT 11 U/L (<34); BILIRUBIN,TOTAL 2.4 MG/DL (0.3-1.2); BLOOD UREA NITROGEN < 5 MG/DL (9-23); CALCIUM LEVEL 8.4 MG/DL (8.5-10.1); CARBON DIOXIDE LEVEL 25 MMOL/L (20-31); CHLORIDE LEVEL 109 MMOL/L (98-107); CREATININE FOR GFR 0.58 MG/DL (0.55-1.30); GLOMERULAR FILTRATION RATE > 60.0 (>60); GLUCOSE, FASTING 83 MG/DL (60-100); MAGNESIUM LEVEL 1.7 MG/DL (1.8-2.4); POTASSIUM SERUM 3.5 MMOL/L (3.5-5.1); SODIUM LEVEL 142 MMOL/L (136-145); TOTAL PROTEIN 5.2 G/DL (5.7-8.2)
[2023-07-28] MEDS: PROMETHAZINE 25 MG TAB PO PRN (10:46)
[2023-07-28] MEDS: ACETAMINOPHEN TAB 650MG DOSE (2X325MG) PO PRN (10:50)
[2023-07-28] MEDS ORDERED: PERCOCET 5MG/325MG TAB PO PRN (11:00)
[2023-07-28] MEDS: MAG SULF 1GM/100ML (MAG RUN) 1 GM in IV 1 EA IV SCH (11:20)
[2023-07-28 14:00] VITALS: BP 98/64; TEMP 98.1; O2SAT 99
[2023-07-28] MEDS ORDERED: SUCR1TA PO (14:26)
[2023-07-28] MEDS ORDERED: LOPE2CAP PO (14:26)
[2023-07-28] MEDS ORDERED: PANT40TA29 PO (14:26)
[2023-07-28] MEDS ORDERED: PROM25TA12 PO (14:26)
== END 2023-07-28 16:35 | disposition home or self-care (01) | DRG 392 ==
LOC: M ED 16:33 → M ED INP 07-27 03:26 → M MSPAV 07-27 11:00
PROVIDERS: ADMIT Internal Medicine; ATTEND Student in an Organized Health Care Education/Training Program
DX: K29.70 Gastritis, unspecified, without bleeding (principal); R10.11 Right upper quadrant pain; Z98.1 Arthrodesis status; Z90.49 Acquired absence of other specified parts of digestive tract; Z79.899 Other long term (current) drug therapy; E80.6 Other disorders of bilirubin metabolism

== ENCOUNTER → 2023-09-15 | Outpatient (REF) | payer OTHER ==
[~2023-09-15] MED LIST changes: +CLON0.5T2; +CLON0.5T2 PO; +LEXA1TAB; +LEXA1TAB PO; +LOPE2CAP PO; +MULT-40 PO; +PANT40TA29 PO; +PROM25TA12 PO; +SUCR1TA PO
== END ==
LOC: M LAB REF 14:43
PROVIDERS: ATTEND Nurse Practitioner Family
DX: B96.81 Helicobacter pylori [H. pylori] as the cause of diseases classified elsewhere (principal)

== ENCOUNTER 2023-11-16 15:29 | Observation (INO) | payer OTHER ==
[~2023-11-16] VITALS: Ht 160 cm; Wt 60.6 kg
[~2023-11-16 15:29] MED LIST changes: +ONDA-282 PO; -ONDA4TAB6 PO
[2023-11-16] MEDS ORDERED: BUPR15TASR PO (15:49)
[2023-11-16 17:21] LABS: BASO % 0.2 % (0.0-1.0); EOS % 0.6 % (0.0-3.0); HEMATOCRIT 39.5 % (36.0-47.0); HEMOGLOBIN 13.2 g/dl (12.0-15.5); LYMPH # 2.2 10^3/uL (1.5-5.0); LYMPH % 43.3 % (24.0-44.0); MEAN CORPUSCULAR HEMOGLOBIN 31.7 pg (27.0-33.0); MEAN CORPUSCULAR HGB CONC 33.4 g/dl (32.0-36.5); MONO # 0.4 10^3/uL (0.0-0.8); MONO % 6.8 % (2.0-8.0); NEUTROPHILS # 2.5 10^3/uL (1.5-8.5); NEUTROPHILS % 49.1 % (36.0-66.0); PLATELET COUNT, AUTOMATED 256 10^3/uL (150-450); RED BLOOD COUNT 4.16 10^6/uL (4.00-5.40); WHITE BLOOD COUNT 5.2 10^3/uL (4.0-10.0)
[2023-11-16 17:39] LABS: LIPASE 24 U/L (12-53)
[2023-11-16 17:40] LABS: HCG, SERUM QUALITATIVE NEGATIVE (NEGATIVE)
[2023-11-16 17:50] LABS: ALBUMIN 4.1 G/DL (3.2-5.2); ALKALINE PHOSPHATASE 67 U/L (46-116); ALT/SGPT 15 U/L (7.0-40); AST/SGOT 12 U/L (<34); BILIRUBIN,DIRECT 0.5 MG/DL (<0.4); BILIRUBIN,TOTAL 1.7 MG/DL (0.3-1.2); BLOOD UREA NITROGEN 5 MG/DL (9-23); CALCIUM LEVEL 9.6 MG/DL (8.5-10.1); CARBON DIOXIDE LEVEL 30 MMOL/L (20-31); CHLORIDE LEVEL 107 MMOL/L (98-107); CREATININE FOR GFR 0.73 MG/DL (0.55-1.30); GLOMERULAR FILTRATION RATE > 60.0 (>60); GLUCOSE, FASTING 80 MG/DL (60-100); POTASSIUM SERUM 3.8 MMOL/L (3.5-5.1); SODIUM LEVEL 141 MMOL/L (136-145); TOTAL PROTEIN 6.8 G/DL (5.7-8.2)
[2023-11-16] MEDS: ONDANSETRON 4MG 2ML VIAL IV ONE ×2 (20:53→23:14)
[2023-11-16] MEDS: NS 1,000 ML IV ONE (20:55)
[2023-11-16] MEDS ORDERED: ISOVUE-370 76% 100ML VIAL As Ordered ONE (21:05)
[2023-11-16] MEDS: MORPHINE 4 MG/ML 1ML VIAL IV ONE (21:06)
[2023-11-16] MEDS: KETOROLAC 30 MG/ML 1ML VIAL IV ONE (21:30)
[2023-11-16] MEDS: PANTOPRAZOLE 40MG VIAL IV ONE (23:13)
[2023-11-17] MEDS: PANTOPRAZOLE 40MG VIAL IV SCH ×2 (00:40→22:34)
[2023-11-17] MEDS: LR 1,000 ML IV SCH (00:50)
[2023-11-17] MEDS ORDERED: BUPR-332 PO (01:52)
[2023-11-17] MEDS ORDERED: LEXA1TAB2 PO (01:52)
[2023-11-17] MEDS ORDERED: BENA25CA4 PO (01:52)
[2023-11-17] MEDS ORDERED: HOME MED LIST COMPLETE! XX SCH (01:55)
[2023-11-17 02:12] LABS: AMPHETAMINES LEVEL URINE NEGATIVE (NEGATIVE); BARBITURATES URINE NEGATIVE (NEGATIVE); BENZODIAZEPINES URINE NEGATIVE (NEGATIVE); CANNABINOIDS URINE NEGATIVE (NEGATIVE); COCAINE METABOLITE URINE NEGATIVE (NEGATIVE); METHADONE URINE NEGATIVE (NEGATIVE); OPIATES URINE NEGATIVE (NEGATIVE); PHENCYCLIDINE URINE NEGATIVE (NEGATIVE)
[2023-11-17] MEDS: ONDANSETRON 4MG 2ML VIAL IV PRN (03:41)
[2023-11-17] MEDS: METOCLOPRAMIDE INJ 10MG/2ML VIAL IV ONE (04:30)
[2023-11-17 06:25] VITALS: BP 90/57; TEMP 96.5; O2SAT 100
[2023-11-17 08:30] VITALS: BP 92/52; TEMP 98.2; O2SAT 99
[2023-11-17] MEDS: ACETAMINOPHEN TAB 650MG DOSE (2X325MG) PO PRN (09:48)
[2023-11-17] MEDS: MAG SULF 1GM/100ML (MAG RUN) 1 GM in IV 1 EA IV SCH (13:05)
[2023-11-17] MEDS: METOCLOPRAMIDE INJ 10MG/2ML VIAL IV PRN (15:48)
[2023-11-17 16:00] VITALS: BP 105/71; TEMP 97.5; O2SAT 99
[2023-11-17] MEDS: NS 1,000 ML IV ONE (16:58)
[2023-11-17] MEDS: LORazepam 2 MG/ML 1ML VIAL IV STA (17:36)
[2023-11-17 18:30] LABS: BLOOD UREA NITROGEN < 5 MG/DL (9-23); CALCIUM LEVEL 8.5 MG/DL (8.5-10.1); CARBON DIOXIDE LEVEL 28 MMOL/L (20-31); CHLORIDE LEVEL 110 MMOL/L (98-107); CREATININE FOR GFR 0.78 MG/DL (0.55-1.30); GLOMERULAR FILTRATION RATE > 60.0 (>60); GLUCOSE, FASTING 76 MG/DL (60-100); MAGNESIUM LEVEL 2.3 MG/DL (1.8-2.4); POTASSIUM SERUM 3.5 MMOL/L (3.5-5.1); SODIUM LEVEL 144 MMOL/L (136-145)
[2023-11-17] MEDS ORDERED: PROHANCE 279.3MG/ML 15ML VIAL As Ordered ONE (18:33)
[2023-11-17 19:08] VITALS: BP 131/70; TEMP 97.6; O2SAT 100
[2023-11-17] MEDS: clonazePAM 0.5 MG TAB PO PRN (19:30)
[2023-11-18] VITALS: BP 135/92; TEMP 97.7; O2SAT 99
[2023-11-18] MEDS: ESCITALOPRAM OXALATE 10 MG TAB (LEXAPRO) PO SCH (08:45)
[2023-11-18] MEDS: buPROPion **XL** TABLET 150MG (WELLBUTRIN XL) PO SCH (08:45)
[2023-11-18] MEDS ORDERED: ESCITALOPRAM OXALATE 10 MG TAB (LEXAPRO) As Ordered ONE (09:17)
[2023-11-18] MEDS ORDERED: buPROPion **XL** TABLET 150MG (WELLBUTRIN XL) As Ordered ONE (09:17)
[2023-11-18] MEDS ORDERED: clonazePAM 0.5 MG TAB As Ordered ONE (09:18)
[2023-11-18 12:18] VITALS: BP 100/62; TEMP 97.5; O2SAT 95
[2023-11-18] MEDS: THIAMINE INJection 500 MG in NS 100 ML IV SCH (15:26)
[2023-11-18 15:38] LABS: BASO % 0.5 % (0.0-1.0); EOS # 0.1 10^3/uL (0.0-0.5); EOS % 1.6 % (0.0-3.0); HEMATOCRIT 32.5 % (36.0-47.0); HEMOGLOBIN 11.1 g/dl (12.0-15.5); LYMPH # 2.2 10^3/uL (1.5-5.0); LYMPH % 56.7 % (24.0-44.0); MEAN CORPUSCULAR HEMOGLOBIN 32.5 pg (27.0-33.0); MEAN CORPUSCULAR HGB CONC 34.2 g/dl (32.0-36.5); MONO # 0.2 10^3/uL (0.0-0.8); NEUTROPHILS # 1.4 10^3/uL (1.5-8.5); NEUTROPHILS % 35.2 % (36.0-66.0); PLATELET COUNT, AUTOMATED 204 10^3/uL (150-450); RED BLOOD COUNT 3.42 10^6/uL (4.00-5.40); WHITE BLOOD COUNT 3.9 10^3/uL (4.0-10.0)
[2023-11-18 16:29] VITALS: BP 109/69; TEMP 97.7; O2SAT 99
[2023-11-18 17:17] LABS: BLOOD UREA NITROGEN < 5 MG/DL (9-23); CALCIUM LEVEL 8.6 MG/DL (8.5-10.1); CARBON DIOXIDE LEVEL 31 MMOL/L (20-31); CHLORIDE LEVEL 110 MMOL/L (98-107); CREATININE FOR GFR 0.77 MG/DL (0.55-1.30); GLOMERULAR FILTRATION RATE > 60.0 (>60); GLUCOSE, FASTING 91 MG/DL (60-100); MAGNESIUM LEVEL 1.8 MG/DL (1.8-2.4); POTASSIUM SERUM 3.2 MMOL/L (3.5-5.1); SODIUM LEVEL 143 MMOL/L (136-145)
[2023-11-18 19:59] VITALS: BP 110/69; TEMP 97.7; O2SAT 97
[2023-11-19 00:16] VITALS: BP 105/63; TEMP 98.2; O2SAT 96
[2023-11-19] MEDS: diphenhydrAMINE 25MG CAP PO SCH (00:54)
[2023-11-19 04:33] VITALS: BP 101/64; TEMP 98.3; O2SAT 96
[2023-11-19 08:35] VITALS: BP 101/61; TEMP 97.7; O2SAT 95
[2023-11-19 09:16] LABS: BLOOD UREA NITROGEN < 5 MG/DL (9-23); CALCIUM LEVEL 8.6 MG/DL (8.5-10.1); CARBON DIOXIDE LEVEL 27 MMOL/L (20-31); CHLORIDE LEVEL 110 MMOL/L (98-107); CREATININE FOR GFR 0.77 MG/DL (0.55-1.30); GLOMERULAR FILTRATION RATE > 60.0 (>60); GLUCOSE, FASTING 121 MG/DL (60-100); MAGNESIUM LEVEL 1.6 MG/DL (1.8-2.4); POTASSIUM SERUM 3.2 MMOL/L (3.5-5.1); SODIUM LEVEL 143 MMOL/L (136-145)
[2023-11-19] MEDS: POTASSIUM CHLORIDE 10MEQ SR TABLET PO ONE (11:15)
[2023-11-19] MEDS: KCL 10MEQ/100ML SWI (KRUN) 10 MEQ in IV 1 EA IV SCH (11:16)
[2023-11-19 11:51] VITALS: BP 103/69; TEMP 97.4; O2SAT 98
[2023-11-19] MEDS: MAG SULF 1GM/100ML (MAG RUN) 1 GM in IV 1 EA IV SCH (13:44)
[2023-11-19] MEDS ORDERED: MAGN400T2 PO (14:03)
[2023-11-19] MEDS ORDERED: PROT1TAB2 PO (14:03)
[2023-11-19] MEDS ORDERED: THIA100T7 PO (14:03)
[2023-11-19] MEDS ORDERED: SUMA25TA3 PO (14:08)
[2023-11-19 17:16] LABS: BLOOD UREA NITROGEN 8 MG/DL (9-23); CALCIUM LEVEL 8.6 MG/DL (8.5-10.1); CARBON DIOXIDE LEVEL 27 MMOL/L (20-31); CHLORIDE LEVEL 109 MMOL/L (98-107); CREATININE FOR GFR 0.84 MG/DL (0.55-1.30); GLOMERULAR FILTRATION RATE > 60.0 (>60); GLUCOSE, FASTING 92 MG/DL (60-100); MAGNESIUM LEVEL 2.6 MG/DL (1.8-2.4); POTASSIUM SERUM 4.2 MMOL/L (3.5-5.1); SODIUM LEVEL 140 MMOL/L (136-145)
[2023-11-22 04:22] LABS: COPPER PLASMA 77 mcg/dL (70-175)
[2023-11-23 13:27] LABS: LYME TOTAL ANTIBODY CIA <= 0.90 Index (<=0.90)
== END 2023-11-19 17:44 | disposition home or self-care (01) ==
LOC: M ED 15:29 → M ED INP 11-17 00:39 → M PED 11-17 06:34 → M PCU 11-17 19:01
PROVIDERS: ADMIT Preventive Medicine Undersea and Hyperbaric Medicine; ATTEND Preventive Medicine Undersea and Hyperbaric Medicine
DX: K29.70 Gastritis, unspecified, without bleeding (principal); G43.909 Migraine, unspecified, not intractable, without status migrainosus; E83.42 Hypomagnesemia; E87.6 Hypokalemia; Z79.899 Other long term (current) drug therapy; Z88.8 Allergy status to other drugs, medicaments and biological substances
CPT/HCPCS: 36415; 70544; 70553; 71250; 74177; 80048; 80076; 80307; 81001; 82525; 82607; 83605; 83690; 83735; 84425; 84443; 84703; 85025; 86618; 87507; 93005; 93041; 94760; 96361; 96374; 96375; 96376; 99285; A9576; J1885; J2060; J2405; J2470; J2765; J3411; J3475; Q9967

== ENCOUNTER → 2024-02-28 | Outpatient (CLI) | payer OTHER ==
[~2024-02-28] MED LIST changes: +BUPR-332 PO; +BUPR15TASR PO; +LEXA1TAB2 PO; +PROT1TAB2 PO; +SUMA25TA3 PO; +THIA100T7 PO
== END ==
LOC: M RAD 07:08
PROVIDERS: ATTEND Otolaryngology
DX: J30.2 Other seasonal allergic rhinitis (principal)

== ENCOUNTER 2024-03-22 21:23 | Emergency (ER) | payer OTHER ==
[~2024-03-22] VITALS: Ht 160 cm; Wt 59.7 kg
[2024-03-22] MEDS: IBUPROFEN 600MG TAB PO ONE (22:25)
[2024-03-22] MEDS: methocarbamoL 500 MG TAB PO ONE (22:25)
[2024-03-22] MEDS ORDERED: IBUP-1022 PO (23:37)
[2024-03-22] MEDS ORDERED: METH-1164 PO (23:37)
[2024-03-23 00:05] VITALS: BP 103/57; TEMP 97.2; O2SAT 98
== END 2024-03-23 00:07 | disposition home or self-care (01) ==
LOC: M ED 21:23 → EDBD 21:23 → M ED 03-23 00:07
DX: M54.50 Low back pain, unspecified (principal); V43.52XA Car driver injured in collision with other type car in traffic accident, initial encounter; Y92.9 Unspecified place or not applicable; Y93.9 Activity, unspecified; Y99.9 Unspecified external cause status; K21.9 Gastro-esophageal reflux disease without esophagitis; I47.10 Supraventricular tachycardia, unspecified; Z79.899 Other long term (current) drug therapy; Z88.8 Allergy status to other drugs, medicaments and biological substances

== ENCOUNTER 2024-05-25 14:30 | Inpatient (IN) | payer OTHER ==
[~2024-05-25] VITALS: Ht 167.6 cm; Wt 61.0 kg
[~2024-05-25 14:30] MED LIST changes: +METH-1164 PO
[2024-05-25] MEDS ORDERED: CLON0.2T PO (14:55)
[2024-05-25] MEDS: METHOCARBAMOL 1,000 MG/10 ML VIAL IV ONE (17:15)
[2024-05-25 17:22] LABS: BASO % 0.1 % (0.0-1.0); HEMOGLOBIN 14.1 g/dl (12.0-15.5); LYMPH # 2.3 10^3/uL (1.5-5.0); LYMPH % 28.8 % (24.0-44.0); MEAN CORPUSCULAR HGB CONC 35.3 g/dl (32.0-36.5); MEAN CORPUSCULAR VOLUME 90.7 fl (80.0-96.0); MONO # 0.4 10^3/uL (0.0-0.8); MONO % 4.6 % (2.0-8.0); NEUTROPHILS # 5.2 10^3/uL (1.5-8.5); NEUTROPHILS % 66.2 % (36.0-66.0); PLATELET COUNT, AUTOMATED 273 10^3/uL (150-450); RED BLOOD COUNT 4.41 10^6/uL (4.00-5.40); WHITE BLOOD COUNT 7.9 10^3/uL (4.0-10.0)
[2024-05-25 17:32] LABS: ERYTHROCYTE SEDIMENTATION RATE 11 mm/hr (0-20)
[2024-05-25 17:43] LABS: AMPHETAMINES LEVEL URINE NEGATIVE (NEGATIVE); BARBITURATES URINE NEGATIVE (NEGATIVE); BENZODIAZEPINES URINE NEGATIVE (NEGATIVE); COCAINE METABOLITE URINE NEGATIVE (NEGATIVE); METHADONE URINE NEGATIVE (NEGATIVE); OPIATES URINE NEGATIVE (NEGATIVE); PHENCYCLIDINE URINE NEGATIVE (NEGATIVE)
[2024-05-25 17:45] LABS: ETHYL ALCOHOL (ETHANOL) < 0.003 % (0.000-0.010)
[2024-05-25 17:46] LABS: CANNABINOIDS URINE POSITIVE (NEGATIVE)
[2024-05-25 17:47] LABS: ALBUMIN 4.4 G/DL (3.2-5.2); ALKALINE PHOSPHATASE 72 U/L (35-104); ALT/SGPT 27 U/L (7.0-40); AST/SGOT 22 U/L (<34); BILIRUBIN,DIRECT 0.6 MG/DL (<0.4); BILIRUBIN,TOTAL 2.2 MG/DL (0.3-1.2); BLOOD UREA NITROGEN 8 MG/DL (9-23); C REACTIVE PROTEIN QUANTITATIV < 0.50 MG/DL (<1.0); CALCIUM LEVEL 9.7 MG/DL (8.5-10.1); CARBON DIOXIDE LEVEL 25 MMOL/L (20-31); CHLORIDE LEVEL 105 MMOL/L (98-107); CREATININE FOR GFR 0.59 MG/DL (0.55-1.30); GLOMERULAR FILTRATION RATE > 60.0 (>60); GLUCOSE, FASTING 87 MG/DL (60-100); POTASSIUM SERUM 3.6 MMOL/L (3.5-5.1); SALICYLATE LEVEL < 3.0 MG/DL (<30); SODIUM LEVEL 142 MMOL/L (136-145); TOTAL PROTEIN 7.7 G/DL (5.7-8.2)
[2024-05-25 17:58] LABS: PROCALCITONIN <0.04 ng/ml
[2024-05-25 18:11] LABS: HCG, SERUM QUALITATIVE NEGATIVE (NEGATIVE)
[2024-05-25] MEDS: ONDANSETRON 4MG 2ML VIAL IV ONE (20:42)
[2024-05-25] MEDS: NS (Normal Saline) 0.9% 1,000 ML IV ONE (20:44)
[2024-05-25] MEDS: KETOROLAC 30 MG/ML 1ML VIAL IV ONE (20:55)
[2024-05-25] MEDS: fentaNYL 100 MCG/2 ML INJECTION IV PRN (21:03)
[2024-05-26] MEDS: METHOCARBAMOL 1,000 MG/10 ML VIAL IV ONE (00:58)
[2024-05-26 01:41] LABS: MAGNESIUM LEVEL 1.9 MG/DL (1.8-2.4)
[2024-05-26] MEDS ORDERED: IBUP-1114 PO (02:53)
[2024-05-26] MEDS ORDERED: METH-1164 PO ×2 (02:53→12:50)
[2024-05-26] MEDS ORDERED: ZONI50CA11 PO (02:53)
[2024-05-26] MEDS ORDERED: ALBU8.5H INH (02:53)
[2024-05-26] MEDS ORDERED: BAYE325T2 PO (02:53)
[2024-05-26] MEDS ORDERED: BUPR-597 PO (02:53)
[2024-05-26] MEDS ORDERED: HOME MED LIST COMPLETE! XX SCH (02:55)
[2024-05-26] MEDS ORDERED: ALBUTEROL 90 MCG/ACT 8GM HFA INHALER INH PRN (03:10)
[2024-05-26] MEDS ORDERED: ACETAMINOPHEN 325 MG TAB PO PRN (03:10)
[2024-05-26] MEDS ORDERED: diphenhydrAMINE 25MG CAP PO PRN (03:10)
[2024-05-26] MEDS ORDERED: MOM 30ML SUSPENSION UDC PO PRN (03:10)
[2024-05-26 04:00] VITALS: BP 121/76; TEMP 96.4; O2SAT 94
[2024-05-26] MEDS: methocarbamoL 500 MG TAB PO PRN ×2 (04:33→10:21)
[2024-05-26] MEDS: NORCO, ANEXSIA 5/325MG TABLET (HYDROcodone/ACETAMINOPHEN) PO PRN (04:34)
[2024-05-26] MEDS ORDERED: methocarbamoL 500 MG TAB PO PRN (08:05)
[2024-05-26] MEDS ORDERED: oxyCODONE 5MG TAB PO PRN (08:05)
[2024-05-26] MEDS: PANTOPRAZOLE 40MG VIAL IV SCH (09:00)
[2024-05-26] MEDS: ESCITALOPRAM OXALATE 10 MG TAB (LEXAPRO) PO SCH ×2 (09:00→09:01)
[2024-05-26] MEDS: ENOXAPARIN 40MG/0.4ML SYRINGE (J1650 PER 10MG) SC SCH (09:00)
[2024-05-26] MEDS ORDERED: buPROPion **XL** TABLET 150MG (WELLBUTRIN XL) PO SCH ×2 (09:00→21:00)
[2024-05-26] MEDS ORDERED: ESCITALOPRAM OXALATE 10 MG TAB (LEXAPRO) PO SCH (09:00)
[2024-05-26 09:01] LABS: BASO % 0.4 % (0.0-1.0); EOS # 0.1 10^3/uL (0.0-0.5); EOS % 0.9 % (0.0-3.0); HEMATOCRIT 35.4 % (36.0-47.0); HEMOGLOBIN 12.2 g/dl (12.0-15.5); LYMPH # 2.9 10^3/uL (1.5-5.0); LYMPH % 53.4 % (24.0-44.0); MEAN CORPUSCULAR HEMOGLOBIN 31.4 pg (27.0-33.0); MEAN CORPUSCULAR HGB CONC 34.5 g/dl (32.0-36.5); MEAN CORPUSCULAR VOLUME 91.2 fl (80.0-96.0); MONO # 0.4 10^3/uL (0.0-0.8); MONO % 7.4 % (2.0-8.0); NEUTROPHILS % 37.7 % (36.0-66.0); PLATELET COUNT, AUTOMATED 221 10^3/uL (150-450); RED BLOOD COUNT 3.88 10^6/uL (4.00-5.40); WHITE BLOOD COUNT 5.4 10^3/uL (4.0-10.0)
[2024-05-26] MEDS: ZONISAMIDE 50 MG CAP (ZONEGRAN) PO SCH (09:01)
[2024-05-26] MEDS: clonazePAM 0.5 MG TAB PO PRN (09:10)
[2024-05-26] MEDS: KETOROLAC 30 MG/ML 1ML VIAL IV PRN (09:10)
[2024-05-26 09:25] LABS: BLOOD UREA NITROGEN 9 MG/DL (9-23); CALCIUM LEVEL 8.4 MG/DL (8.5-10.1); CARBON DIOXIDE LEVEL 22 MMOL/L (20-31); CHLORIDE LEVEL 107 MMOL/L (98-107); CREATININE FOR GFR 0.69 MG/DL (0.55-1.30); GLOMERULAR FILTRATION RATE > 60.0 (>60); GLUCOSE, FASTING 68 MG/DL (60-100); MAGNESIUM LEVEL 1.8 MG/DL (1.8-2.4); POTASSIUM SERUM 3.4 MMOL/L (3.5-5.1); SODIUM LEVEL 142 MMOL/L (136-145)
[2024-05-26] MEDS: POTASSIUM CHLORIDE 10MEQ SR TABLET PO ONE (10:21)
[2024-05-26] MEDS: oxyCODONE 5MG TAB PO PRN (10:22)
[2024-05-26] MEDS: MAG SULF 1GM/100ML (MAG RUN) 1 GM in IV 1 EA IV ONE (10:23)
[2024-05-26 12:00] VITALS: BP 113/75; TEMP 97.9
[2024-05-26] MEDS ORDERED: OXYC-517 PO (12:50)
[2024-05-26] MEDS ORDERED: PROT1TAB2 PO (12:50)
[2024-05-27] MEDS ORDERED: FLUZONE VACCINE TRIVALENT PF(2024-25) 0.5ML SYRINGE IM.IMMUN ONE (09:00)
== END 2024-05-26 14:30 | disposition home or self-care (01) | DRG 552 ==
LOC: EDBD 14:30 → M ED 14:30 → M ED INP 05-26 03:06 → M MS5PR 05-26 04:26
PROVIDERS: ADMIT Student in an Organized Health Care Education/Training Program; ATTEND Student in an Organized Health Care Education/Training Program
DX: M54.50 Low back pain, unspecified (principal); R45.851 Suicidal ideations; I47.10 Supraventricular tachycardia, unspecified; K21.9 Gastro-esophageal reflux disease without esophagitis; F41.1 Generalized anxiety disorder; F32.A Depression, unspecified; G89.29 Other chronic pain; Z91.51 Personal history of suicidal behavior; G43.909 Migraine, unspecified, not intractable, without status migrainosus; M54.30 Sciatica, unspecified side; Z83.3 Family history of diabetes mellitus; Z79.899 Other long term (current) drug therapy; Z88.8 Allergy status to other drugs, medicaments and biological substances; F90.9 Attention-deficit hyperactivity disorder, unspecified type; E87.6 Hypokalemia; E83.42 Hypomagnesemia

== ENCOUNTER 2024-06-04 18:35 | Emergency (ER) | payer OTHER ==
[~2024-06-04] VITALS: Ht 160 cm; Wt 60.7 kg
[~2024-06-04 18:35] MED LIST changes: +ALBU8.5H INH; +BAYE325T2 PO; +BUPR-597 PO; +CLON0.2T PO; +OXYC-517 PO; +ZONI50CA11 PO
[2024-06-04 20:06] LABS: BASO % 0.2 % (0.0-1.0); EOS # 0.1 10^3/uL (0.0-0.5); EOS % 1.2 % (0.0-3.0); HEMATOCRIT 40.8 % (36.0-47.0); LYMPH # 1.7 10^3/uL (1.5-5.0); LYMPH % 29.7 % (24.0-44.0); MEAN CORPUSCULAR HEMOGLOBIN 31.5 pg (27.0-33.0); MEAN CORPUSCULAR HGB CONC 34.3 g/dl (32.0-36.5); MEAN CORPUSCULAR VOLUME 91.9 fl (80.0-96.0); MONO # 0.5 10^3/uL (0.0-0.8); MONO % 7.9 % (2.0-8.0); NEUTROPHILS # 3.5 10^3/uL (1.5-8.5); NEUTROPHILS % 60.8 % (36.0-66.0); PLATELET COUNT, AUTOMATED 247 10^3/uL (150-450); RED BLOOD COUNT 4.44 10^6/uL (4.00-5.40); WHITE BLOOD COUNT 5.7 10^3/uL (4.0-10.0)
[2024-06-04 20:30] LABS: ALKALINE PHOSPHATASE 63 U/L (35-104); ALT/SGPT 19 U/L (7.0-40); AST/SGOT 16 U/L (<34); BILIRUBIN,TOTAL 1.3 MG/DL (0.3-1.2); BLOOD UREA NITROGEN 13 MG/DL (9-23); CALCIUM LEVEL 9.6 MG/DL (8.5-10.1); CARBON DIOXIDE LEVEL 24 MMOL/L (20-31); CHLORIDE LEVEL 108 MMOL/L (98-107); CREATININE FOR GFR 0.68 MG/DL (0.55-1.30); GLOMERULAR FILTRATION RATE > 60.0 (>60); GLUCOSE, FASTING 98 MG/DL (60-100); POTASSIUM SERUM 4.6 MMOL/L (3.5-5.1); SODIUM LEVEL 141 MMOL/L (136-145); TOTAL PROTEIN 7.2 G/DL (5.7-8.2)
[2024-06-04] MEDS ORDERED: ISOVUE-370 76% 100ML VIAL As Ordered ONE (23:18)
[2024-06-04 23:25] LABS: C REACTIVE PROTEIN QUANTITATIV < 0.50 MG/DL (<1.0)
[2024-06-04 23:37] LABS: HCG, SERUM QUALITATIVE NEGATIVE (NEGATIVE)
[2024-06-04] MEDS: diazePAM 10MG/2ML SYRINGE IV ONE (23:42)
[2024-06-04] MEDS: methylPREDNISolone 125MG 2ML VIAL IV ONE (23:42)
[2024-06-04] MEDS: NS (Normal Saline) 0.9% 1,000 ML IV ONE (23:42)
[2024-06-04] MEDS: ONDANSETRON 4MG 2ML VIAL IV ONE (23:42)
[2024-06-04] MEDS: KETOROLAC 30 MG/ML 1ML VIAL IV ONE (23:42)
[2024-06-04 23:43] LABS: ERYTHROCYTE SEDIMENTATION RATE 12 mm/hr (0-20)
[2024-06-05] MEDS: fentaNYL 100 MCG/2 ML INJECTION IV ONE (01:09)
[2024-06-05] MEDS ORDERED: VALI5TAB PO (03:35)
[2024-06-05] MEDS ORDERED: OXYC-517 PO (03:35)
[2024-06-05] MEDS: oxyCODONE 5MG TAB PO ONE (03:36)
[2024-06-05] MEDS: ACETAMINOPHEN *IV* 1,000 MG in IV 1 EA IV ONE (03:37)
[2024-06-05 03:50] LABS: KETONE, URINE AUTO RFX NEGATIVE (NEGATIVE); LEUKOCYTE ESTERASE UR AUTO RFX NEGATIVE (NEGATIVE); NITRITE, URINE AUTO RFX NEGATIVE (NEGATIVE); RBC, URINE AUTO RFX 2 /HPF (0-3); SQUAM EPITHELIAL CELL UR AURFX 6 /HPF (0-6); WBC, URINE AUTO RFX 2 /HPF (0-3)
[2024-06-05 04:47] VITALS: BP 97/64; TEMP 97.3; O2SAT 97
== END 2024-06-05 04:57 | disposition home or self-care (01) ==
LOC: M ED 18:35
DX: M54.50 Low back pain, unspecified (principal); M62.830 Muscle spasm of back; R50.9 Fever, unspecified; K21.9 Gastro-esophageal reflux disease without esophagitis; F41.9 Anxiety disorder, unspecified; F32.A Depression, unspecified; Z79.899 Other long term (current) drug therapy; Z88.8 Allergy status to other drugs, medicaments and biological substances
CPT/HCPCS: 70450; 71260; 72125; 72128; 72131; 74177; 80053; 81001; 84703; 85025; 85652; 86140; 87040; 87486; 87581; 87633; 87798; 96361; 96365; 96375; 99284; J0131; J1885; J2405; J2919; J3010; J3360; Q9967

== ENCOUNTER 2024-06-13 18:49 | Inpatient (IN) | payer OTHER ==
[~2024-06-13] VITALS: Ht 160 cm; Wt 61.4 kg
[2024-06-13 19:29] LABS: HEMATOCRIT 41.3 % (36.0-47.0); HEMOGLOBIN 13.9 g/dl (12.0-15.5); MEAN CORPUSCULAR HEMOGLOBIN 31.3 pg (27.0-33.0); MEAN CORPUSCULAR HGB CONC 33.7 g/dl (32.0-36.5); PLATELET COUNT, AUTOMATED 317 10^3/uL (150-450); RED BLOOD COUNT 4.44 10^6/uL (4.00-5.40); WHITE BLOOD COUNT 5.4 10^3/uL (4.0-10.0)
[2024-06-13 20:05] LABS: AMPHETAMINES LEVEL URINE NEGATIVE (NEGATIVE); BARBITURATES URINE NEGATIVE (NEGATIVE); COCAINE METABOLITE URINE NEGATIVE (NEGATIVE); METHADONE URINE NEGATIVE (NEGATIVE); OPIATES URINE NEGATIVE (NEGATIVE); PHENCYCLIDINE URINE NEGATIVE (NEGATIVE)
[2024-06-13 20:07] LABS: ETHYL ALCOHOL (ETHANOL) 0.005 % (0.000-0.010)
[2024-06-13 20:09] LABS: ALBUMIN 4.4 G/DL (3.2-5.2); ALKALINE PHOSPHATASE 75 U/L (35-104); ALT/SGPT 19 U/L (7.0-40); AST/SGOT 15 U/L (<34); BILIRUBIN,DIRECT 0.3 MG/DL (<0.4); BLOOD UREA NITROGEN 7 MG/DL (9-23); CALCIUM LEVEL 9.9 MG/DL (8.5-10.1); CARBON DIOXIDE LEVEL 26 MMOL/L (20-31); CHLORIDE LEVEL 107 MMOL/L (98-107); CREATININE FOR GFR 0.58 MG/DL (0.55-1.30); GLOMERULAR FILTRATION RATE > 60.0 (>60); GLUCOSE, FASTING 105 MG/DL (60-100); POTASSIUM SERUM 4.1 MMOL/L (3.5-5.1); SALICYLATE LEVEL < 3.0 MG/DL (<30); SODIUM LEVEL 141 MMOL/L (136-145); TOTAL PROTEIN 7.8 G/DL (5.7-8.2)
[2024-06-13 20:11] LABS: BENZODIAZEPINES URINE POSITIVE (NEGATIVE); CANNABINOIDS URINE POSITIVE (NEGATIVE); THYROID STIMULATING HORMONE 1.922 uIU/ML (0.55-4.78)
[2024-06-13] MEDS ORDERED: DIAZ5TAB PO (21:03)
[2024-06-13] MEDS ORDERED: PANT-23 PO (21:06)
[2024-06-13] MEDS ORDERED: OXYC-517 PO (21:08)
[2024-06-13] MEDS ORDERED: CELE0.09 PO (21:08)
[2024-06-13] MEDS ORDERED: HOME MED LIST COMPLETE! XX SCH (21:10)
[2024-06-13] MEDS: PERCOCET 5MG/325MG TAB PO ONE (21:11)
[2024-06-13] MEDS ORDERED: ACETAMINOPHEN 325 MG TAB PO PRN (22:45)
[2024-06-13] MEDS ORDERED: MOM 30ML SUSPENSION UDC PO PRN (22:45)
[2024-06-13] MEDS ORDERED: traZODone 50 MG TAB PO PRN (22:45)
[2024-06-13] MEDS ORDERED: MAALOX 30 ML SUSP *UDC PO PRN (22:45)
[2024-06-13] MEDS ORDERED: OLANZapine ORAL DISINTEGRATING TAB 5MG PO PRN (22:45)
[2024-06-14] MEDS: diazePAM 5MG TABLET PO ONE (00:37)
[2024-06-14 00:41] VITALS: BP 114/75; TEMP 97; O2SAT 100
[2024-06-14] MEDS: PANTOPRAZOLE 40MG TAB (PROTONIX) PO SCH (09:33)
[2024-06-14] MEDS: ESCITALOPRAM OXALATE 10 MG TAB (LEXAPRO) PO SCH (09:33)
[2024-06-14] MEDS: oxyCODONE 5MG TAB PO PRN (09:34)
[2024-06-14 10:00] VITALS: BP 114/75; TEMP 97; O2SAT 100
[2024-06-14] MEDS: diazePAM 5MG TABLET PO PRN (12:38)
[2024-06-14 16:34] VITALS: BP 106/79; TEMP 98.6; O2SAT 100
[2024-06-14] MEDS: IBUPROFEN 400MG TAB PO PRN (18:55)
[2024-06-14] MEDS: tiZANidine 4 MG TAB PO PRN (20:55)
[2024-06-15 06:37] VITALS: BP 107/70; TEMP 97; O2SAT 99
[2024-06-15 09:00] VITALS: BP 114/75; TEMP 97; O2SAT 100
[2024-06-15] MEDS: FLUZONE VACCINE TRIVALENT PF(2024-25) 0.5ML SYRINGE IM.IMMUN ONE (09:50)
[2024-06-15 16:46] VITALS: BP 108/68; TEMP 98.2; O2SAT 98
[2024-06-16 06:21] VITALS: BP 98/59; TEMP 97.5; O2SAT 100
[2024-06-16] MEDS: diphenhydrAMINE 25MG CAP PO PRN (12:03)
[2024-06-16 15:33] VITALS: BP 98/62; TEMP 97.6; O2SAT 98
[2024-06-17 06:17] VITALS: BP 96/52; TEMP 97.5; O2SAT 98
[2024-06-17 16:12] VITALS: BP 112/73; TEMP 98.3; O2SAT 96
[2024-06-18 06:57] VITALS: BP 111/66; TEMP 97.5
[2024-06-18 10:15] VITALS: BP 137/86; TEMP 97.4; O2SAT 99
[2024-06-18] MEDS: RAMELTEON 8 MG TAB (ROZEREM) PO SCH (21:47)
[2024-06-19 06:20] VITALS: BP 118/57; TEMP 98.3; O2SAT 100
[2024-06-19 15:38] VITALS: BP 120/79; TEMP 97; O2SAT 98
[2024-06-19] MEDS: busPIRone 10 MG TAB PO SCH (21:00)
[2024-06-20] MEDS ORDERED: LEXA1TAB PO (02:37)
[2024-06-20] MEDS ORDERED: BUSP10TA PO (02:37)
[2024-06-20] MEDS ORDERED: TRAZ-252 PO (02:37)
[2024-06-20 06:24] VITALS: BP 108/60; TEMP 97.7; O2SAT 100
[2024-06-20 11:11] VITALS: BP 108/60; TEMP 97.7; O2SAT 100
[2024-06-20] MEDS ORDERED: DIAZ5TAB PO (13:15)
== END 2024-06-20 11:45 | disposition home or self-care (01) | DRG 885 ==
LOC: EDBD 18:49 → M ED 18:49 → M ED INP 22:44 → M PSY 23:55
PROVIDERS: ADMIT Psychiatry & Neurology Neurology; ATTEND Psychiatry & Neurology Neurology
DX: F33.1 Major depressive disorder, recurrent, moderate (principal); R45.851 Suicidal ideations; F41.1 Generalized anxiety disorder; F60.3 Borderline personality disorder; M54.16 Radiculopathy, lumbar region; G89.29 Other chronic pain; Z79.899 Other long term (current) drug therapy; Z88.8 Allergy status to other drugs, medicaments and biological substances; G43.909 Migraine, unspecified, not intractable, without status migrainosus; K21.9 Gastro-esophageal reflux disease without esophagitis; F43.10 Post-traumatic stress disorder, unspecified; Z90.49 Acquired absence of other specified parts of digestive tract

== ENCOUNTER 2024-07-01 23:53 | Emergency (ER) | payer OTHER ==
[~2024-07-01] VITALS: Ht 160 cm; Wt 60.0 kg
[~2024-07-01 23:53] MED LIST changes: +BUSP10TA PO; +CELE0.09 PO; +DIAZ5TAB PO; +PANT-23 PO; +TRAZ-252 PO
[2024-07-02 00:55] LABS: BASO % 0.2 % (0.0-1.0); EOS # 0.1 10^3/uL (0.0-0.5); EOS % 0.9 % (0.0-3.0); HEMATOCRIT 38.8 % (36.0-47.0); HEMOGLOBIN 13.5 g/dl (12.0-15.5); LYMPH # 2.4 10^3/uL (1.5-5.0); LYMPH % 37.6 % (24.0-44.0); MEAN CORPUSCULAR HEMOGLOBIN 31.5 pg (27.0-33.0); MEAN CORPUSCULAR HGB CONC 34.8 g/dl (32.0-36.5); MEAN CORPUSCULAR VOLUME 90.4 fl (80.0-96.0); MONO # 0.4 10^3/uL (0.0-0.8); MONO % 6.7 % (2.0-8.0); NEUTROPHILS # 3.5 10^3/uL (1.5-8.5); NEUTROPHILS % 54.4 % (36.0-66.0); PLATELET COUNT, AUTOMATED 208 10^3/uL (150-450); RED BLOOD COUNT 4.29 10^6/uL (4.00-5.40); WHITE BLOOD COUNT 6.4 10^3/uL (4.0-10.0)
[2024-07-02 01:27] LABS: CK-MB VALUE MASS < 1.0 NG/ML (<3.6)
[2024-07-02 01:28] LABS: BLOOD UREA NITROGEN 7 MG/DL (9-23); CALCIUM LEVEL 10.1 MG/DL (8.5-10.1); CARBON DIOXIDE LEVEL 24 MMOL/L (20-31); CHLORIDE LEVEL 107 MMOL/L (98-107); CPK CREATINE PHOSPHOKINASE 67 U/L (34-145); CREATININE FOR GFR 0.65 MG/DL (0.55-1.30); GLOMERULAR FILTRATION RATE > 60.0 (>60); GLUCOSE, FASTING 104 MG/DL (60-100); MB/CK RELATIVE INDEX 1.49 (< OR =4); POTASSIUM SERUM 3.3 MMOL/L (3.5-5.1); SODIUM LEVEL 142 MMOL/L (136-145)
[2024-07-02] MEDS: diazePAM 10MG/2ML SYRINGE IV ONE (01:50)
[2024-07-02] MEDS: HYDROMORPHONE HCL 0.5 MG/ 0.5 ML SYRINGE IV PRN (04:19)
[2024-07-02 06:00] VITALS: TEMP 98.9
[2024-07-02] MEDS ORDERED: PERCOCET 5MG/325MG TAB PO ONE (12:50)
[2024-07-02] MEDS ORDERED: CALCTAB41 PO (13:14)
[2024-07-02] MEDS ORDERED: LIDO1PAD TOP (13:14)
[2024-07-02] MEDS ORDERED: PERCOCET PO (13:14)
[2024-07-02] MEDS ORDERED: SODI88SP (13:14)
[2024-07-02] MEDS ORDERED: METH-1164 PO (13:14)
[2024-07-02] MEDS ORDERED: HOME MED LIST COMPLETE! XX SCH (13:15)
[2024-07-02] MEDS ORDERED: ROLLMIS8 XX (14:39)
[2024-07-02 15:35] VITALS: BP 88/60; O2SAT 99
== END 2024-07-02 16:00 | disposition home or self-care (01) ==
LOC: M ED 23:53
DX: M54.9 Dorsalgia, unspecified (principal); G43.909 Migraine, unspecified, not intractable, without status migrainosus; F32.A Depression, unspecified; K21.9 Gastro-esophageal reflux disease without esophagitis; I47.10 Supraventricular tachycardia, unspecified; F17.200 Nicotine dependence, unspecified, uncomplicated; M43.26 Fusion of spine, lumbar region; Z88.8 Allergy status to other drugs, medicaments and biological substances
CPT/HCPCS: 71045; 72125; 72128; 72131; 72146; 72148; 80048; 82550; 82553; 83605; 84484; 85025; 87040; 87486; 87581; 87633; 87798; 93005; 94760; 96374; 96375; 96376; 97116; 97161; 99285; J1171; J3360

== ENCOUNTER 2024-07-19 01:05 | Emergency (ER) | payer OTHER ==
[~2024-07-19] VITALS: Ht 160 cm; Wt 63.6 kg
[~2024-07-19 01:05] MED LIST changes: +CALCTAB41 PO; +LIDO1PAD TOP; +ROLLMIS8 XX; +SODI88SP
[2024-07-19] MEDS: METOPROLOL TART 25 MG TABLET PO ONE (01:31)
[2024-07-19 01:36] LABS: BASO % 0.3 % (0.0-1.0); EOS % 0.7 % (0.0-3.0); HEMATOCRIT 37.6 % (36.0-47.0); HEMOGLOBIN 13.2 g/dl (12.0-15.5); LYMPH # 2.1 10^3/uL (1.5-5.0); LYMPH % 34.9 % (24.0-44.0); MEAN CORPUSCULAR HEMOGLOBIN 32.1 pg (27.0-33.0); MEAN CORPUSCULAR HGB CONC 35.1 g/dl (32.0-36.5); MEAN CORPUSCULAR VOLUME 91.5 fl (80.0-96.0); MONO # 0.4 10^3/uL (0.0-0.8); MONO % 6.1 % (2.0-8.0); NEUTROPHILS # 3.5 10^3/uL (1.5-8.5); NEUTROPHILS % 57.8 % (36.0-66.0); PLATELET COUNT, AUTOMATED 314 10^3/uL (150-450); RED BLOOD COUNT 4.11 10^6/uL (4.00-5.40); WHITE BLOOD COUNT 6.1 10^3/uL (4.0-10.0)
[2024-07-19 02:18] LABS: BLOOD UREA NITROGEN 14 MG/DL (9-23); CARBON DIOXIDE LEVEL 25 MMOL/L (20-31); CHLORIDE LEVEL 106 MMOL/L (98-107); CREATININE FOR GFR 0.62 MG/DL (0.55-1.30); GLOMERULAR FILTRATION RATE > 60.0 (>60); GLUCOSE, FASTING 95 MG/DL (60-100); POTASSIUM SERUM 3.9 MMOL/L (3.5-5.1); SODIUM LEVEL 140 MMOL/L (136-145)
[2024-07-19] MEDS: ALPRAZolam 0.5 MG TAB PO ONE (02:26)
[2024-07-19 03:07] LABS: THYROID STIMULATING HORMONE 0.865 uIU/ML (0.55-4.78)
[2024-07-19] MEDS ORDERED: METO1TAB87 PO (03:09)
[2024-07-19 03:22] VITALS: BP 96/58; TEMP 98.8; O2SAT 98
== END 2024-07-19 03:31 | disposition home or self-care (01) ==
LOC: M ED 01:05
DX: R00.2 Palpitations (principal); M54.9 Dorsalgia, unspecified; F41.9 Anxiety disorder, unspecified; F32.A Depression, unspecified; Z79.899 Other long term (current) drug therapy; Z88.8 Allergy status to other drugs, medicaments and biological substances

== ENCOUNTER 2024-07-30 12:50 | Emergency (ER) | payer OTHER ==
[~2024-07-30] VITALS: Ht 160 cm; Wt 60.0 kg
[~2024-07-30 12:50] MED LIST changes: +METO1TAB87 PO
[2024-07-30 14:43] LABS: BASO % 0.2 % (0.0-1.0); EOS # 0.1 10^3/uL (0.0-0.5); EOS % 0.6 % (0.0-3.0); HEMATOCRIT 42.8 % (36.0-47.0); HEMOGLOBIN 15.1 g/dl (12.0-15.5); LYMPH # 1.9 10^3/uL (1.5-5.0); LYMPH % 15.2 % (24.0-44.0); MEAN CORPUSCULAR HEMOGLOBIN 31.7 pg (27.0-33.0); MEAN CORPUSCULAR HGB CONC 35.3 g/dl (32.0-36.5); MEAN CORPUSCULAR VOLUME 89.7 fl (80.0-96.0); MONO # 0.8 10^3/uL (0.0-0.8); NEUTROPHILS # 9.9 10^3/uL (1.5-8.5); NEUTROPHILS % 77.8 % (36.0-66.0); PLATELET COUNT, AUTOMATED 256 10^3/uL (150-450); RED BLOOD COUNT 4.77 10^6/uL (4.00-5.40); WHITE BLOOD COUNT 12.7 10^3/uL (4.0-10.0)
[2024-07-30 15:13] LABS: LIPASE 30 U/L (12-53)
[2024-07-30 15:14] LABS: KETONE, URINE AUTO RFX NEGATIVE (NEGATIVE); MUCUS, URINE RFX SMALL (NEGATIVE); NITRITE, URINE AUTO RFX NEGATIVE (NEGATIVE); RBC, URINE AUTO RFX 3 /HPF (0-3); SQUAM EPITHELIAL CELL UR AURFX 11 /HPF (0-6); WBC, URINE AUTO RFX 8 /HPF (0-3)
[2024-07-30 15:15] LABS: ALBUMIN 4.2 G/DL (3.2-5.2); ALKALINE PHOSPHATASE 70 U/L (35-104); ALT/SGPT 20 U/L (7.0-40); AST/SGOT 28 U/L (<34); BILIRUBIN,DIRECT 0.1 MG/DL (<0.4); BILIRUBIN,TOTAL 0.7 MG/DL (0.3-1.2); BLOOD UREA NITROGEN 15 MG/DL (9-23); CALCIUM LEVEL 9.3 MG/DL (8.5-10.1); CARBON DIOXIDE LEVEL 23 MMOL/L (20-31); CHLORIDE LEVEL 107 MMOL/L (98-107); CREATININE FOR GFR 0.66 MG/DL (0.55-1.30); GLOMERULAR FILTRATION RATE > 60.0 (>60); GLUCOSE, FASTING 91 MG/DL (60-100); POTASSIUM SERUM 4.2 MMOL/L (3.5-5.1); SODIUM LEVEL 139 MMOL/L (136-145); TOTAL PROTEIN 7.6 G/DL (5.7-8.2)
[2024-07-30 15:17] LABS: HCG, SERUM QUALITATIVE NEGATIVE (NEGATIVE)
[2024-07-30 15:19] LABS: LEUKOCYTE ESTERASE UR AUTO RFX 2+ (NEGATIVE)
[2024-07-30] MEDS: KETOROLAC 30 MG/ML 1ML VIAL IV ONE (16:25)
[2024-07-30] MEDS: ONDANSETRON 4MG 2ML VIAL IV ONE (16:25)
[2024-07-30] MEDS ORDERED: ISOVUE-370 76% 100ML VIAL As Ordered ONE (16:30)
[2024-07-30] MEDS: NS (Normal Saline) 0.9% 1,000 ML IV ONE (17:45)
[2024-07-30] MEDS: METOCLOPRAMIDE INJ 10MG/2ML VIAL IV ONE (17:45)
[2024-07-30] MEDS ORDERED: REGL10TA6 PO (19:57)
[2024-07-30 20:00] VITALS: BP 85/51; TEMP 96.9; O2SAT 99
== END 2024-07-30 20:06 | disposition home or self-care (01) ==
LOC: M ED 12:50
DX: K52.9 Noninfective gastroenteritis and colitis, unspecified (principal); K21.9 Gastro-esophageal reflux disease without esophagitis; F41.9 Anxiety disorder, unspecified; F32.A Depression, unspecified; Z79.899 Other long term (current) drug therapy; Z88.8 Allergy status to other drugs, medicaments and biological substances
CPT/HCPCS: 36415; 74177; 80048; 80076; 81001; 83690; 84703; 85025; 87086; 93005; 96361; 96374; 96375; 99284; J1885; J2405; J2765; Q9967

== ENCOUNTER 2024-08-17 15:36 | Emergency (ER) | payer OTHER ==
[~2024-08-17] VITALS: Ht 160 cm; Wt 60.9 kg
[~2024-08-17 15:36] MED LIST changes: +REGL10TA6 PO
[2024-08-17] MEDS ORDERED: LEXA1TAB2 (15:45)
[2024-08-17 18:28] LABS: BASO % 0.1 % (0.0-1.0); EOS # 0.1 10^3/uL (0.0-0.5); EOS % 0.7 % (0.0-3.0); HEMATOCRIT 42.3 % (36.0-47.0); HEMOGLOBIN 14.8 g/dl (12.0-15.5); LYMPH # 2.9 10^3/uL (1.5-5.0); MEAN CORPUSCULAR HEMOGLOBIN 31.7 pg (27.0-33.0); MEAN CORPUSCULAR VOLUME 90.6 fl (80.0-96.0); MONO # 0.4 10^3/uL (0.0-0.8); MONO % 5.9 % (2.0-8.0); NEUTROPHILS # 3.7 10^3/uL (1.5-8.5); PLATELET COUNT, AUTOMATED 321 10^3/uL (150-450); RED BLOOD COUNT 4.67 10^6/uL (4.00-5.40); WHITE BLOOD COUNT 7.1 10^3/uL (4.0-10.0)
[2024-08-17 18:37] LABS: ERYTHROCYTE SEDIMENTATION RATE 17 mm/hr (0-20)
[2024-08-17 18:49] LABS: ALBUMIN 4.5 G/DL (3.2-5.2); ALKALINE PHOSPHATASE 80 U/L (35-104); ALT/SGPT 23 U/L (7.0-40); AST/SGOT 22 U/L (<34); BILIRUBIN,TOTAL 1.6 MG/DL (0.3-1.2); BLOOD UREA NITROGEN 8 MG/DL (9-23); CARBON DIOXIDE LEVEL 25 MMOL/L (20-31); CHLORIDE LEVEL 103 MMOL/L (98-107); CREATININE FOR GFR 0.62 MG/DL (0.55-1.30); GLOMERULAR FILTRATION RATE > 90.0 (>60); GLUCOSE, FASTING 97 MG/DL (60-100); SODIUM LEVEL 139 MMOL/L (136-145); TOTAL PROTEIN 7.6 G/DL (5.7-8.2)
[2024-08-17] MEDS: ACETAMINOPHEN 500 MG TAB PO ONE (18:49)
[2024-08-17 18:50] LABS: C REACTIVE PROTEIN QUANTITATIV < 0.50 MG/DL (<1.0)
[2024-08-17] MEDS ORDERED: PROHANCE 279.3MG/ML 15ML VIAL As Ordered ONE (21:41)
[2024-08-17 22:46] VITALS: TEMP 98.1
[2024-08-17 23:30] VITALS: BP 111/75
[2024-08-17 23:36] VITALS: O2SAT 97
[2024-08-17] MEDS ORDERED: ACET-897 PO (23:46)
== END 2024-08-17 23:58 | disposition home or self-care (01) ==
LOC: M ED 15:36
DX: M54.50 Low back pain, unspecified (principal); Q79.60 Ehlers-Danlos syndrome, unspecified; I47.10 Supraventricular tachycardia, unspecified; G90.A Postural orthostatic tachycardia syndrome [POTS]; M43.27 Fusion of spine, lumbosacral region; Z79.899 Other long term (current) drug therapy; Z88.8 Allergy status to other drugs, medicaments and biological substances
CPT/HCPCS: 72158; 80053; 85025; 85652; 86140; 99284; A9576

== ENCOUNTER 2024-08-21 05:59 | Emergency (ER) | payer OTHER ==
[~2024-08-21] VITALS: Ht 160 cm; Wt 60.9 kg
[~2024-08-21 05:59] MED LIST changes: +ACET-897 PO; -BUPR-597 PO; +BUPR-766 PO; +LEXA1TAB2
[2024-08-21] MEDS: ONDANSETRON 4MG 2ML VIAL IV ONE (06:45)
[2024-08-21 06:47] LABS: BASO % 0.6 % (0.0-1.0); EOS # 0.1 10^3/uL (0.0-0.5); EOS % 0.9 % (0.0-3.0); HEMATOCRIT 36.6 % (36.0-47.0); HEMOGLOBIN 12.5 g/dl (12.0-15.5); LYMPH # 2.2 10^3/uL (1.5-5.0); LYMPH % 41.2 % (24.0-44.0); MEAN CORPUSCULAR HEMOGLOBIN 31.6 pg (27.0-33.0); MEAN CORPUSCULAR HGB CONC 34.2 g/dl (32.0-36.5); MEAN CORPUSCULAR VOLUME 92.7 fl (80.0-96.0); MONO # 0.4 10^3/uL (0.0-0.8); MONO % 7.8 % (2.0-8.0); NEUTROPHILS # 2.6 10^3/uL (1.5-8.5); NEUTROPHILS % 49.3 % (36.0-66.0); PLATELET COUNT, AUTOMATED 266 10^3/uL (150-450); RED BLOOD COUNT 3.95 10^6/uL (4.00-5.40); WHITE BLOOD COUNT 5.3 10^3/uL (4.0-10.0)
[2024-08-21 07:06] LABS: CK-MB VALUE MASS < 1.0 NG/ML (<3.6)
[2024-08-21 07:08] LABS: BLOOD UREA NITROGEN 6 MG/DL (9-23); CALCIUM LEVEL 9.5 MG/DL (8.5-10.1); CARBON DIOXIDE LEVEL 26 MMOL/L (20-31); CHLORIDE LEVEL 107 MMOL/L (98-107); CPK CREATINE PHOSPHOKINASE 94 U/L (34-145); CREATININE FOR GFR 0.52 MG/DL (0.55-1.30); GLOMERULAR FILTRATION RATE > 90.0 (>60); GLUCOSE, FASTING 92 MG/DL (60-100); MB/CK RELATIVE INDEX 1.06 (< OR =4); POTASSIUM SERUM 3.7 MMOL/L (3.5-5.1); SODIUM LEVEL 142 MMOL/L (136-145)
[2024-08-21] MEDS: diazePAM 5MG TABLET PO ONE (07:40)
[2024-08-21 07:46] LABS: CK-MB VALUE MASS < 1.0 NG/ML (<3.6)
[2024-08-21 07:47] LABS: CPK CREATINE PHOSPHOKINASE 84 U/L (34-145); MB/CK RELATIVE INDEX 1.19 (< OR =4)
[2024-08-21 09:05] LABS: MAGNESIUM LEVEL 1.8 MG/DL (1.8-2.4)
[2024-08-21 09:26] VITALS: TEMP 96.9
[2024-08-21 10:00] VITALS: BP 110/69; O2SAT 98
== END 2024-08-21 10:04 | disposition home or self-care (01) ==
LOC: EDBD 05:59 → M ED 05:59
DX: R07.89 Other chest pain (principal); I47.10 Supraventricular tachycardia, unspecified; G90.A Postural orthostatic tachycardia syndrome [POTS]; Q79.60 Ehlers-Danlos syndrome, unspecified; Z79.899 Other long term (current) drug therapy; Z88.8 Allergy status to other drugs, medicaments and biological substances
CPT/HCPCS: 71045; 80048; 82550; 82553; 83735; 84484; 85025; 93005; 93041; 94760; 96374; 99285; J2405

== ENCOUNTER 2024-08-31 14:02 | Emergency (ER) | payer OTHER ==
[~2024-08-31] VITALS: Ht 160 cm; Wt 62.0 kg
[2024-08-31 14:16] VITALS: TEMP 99.5
[2024-08-31 14:31] LABS: BASO % 0.2 % (0.0-1.0); EOS % 0.6 % (0.0-3.0); HEMATOCRIT 37.7 % (36.0-47.0); HEMOGLOBIN 13.1 g/dl (12.0-15.5); LYMPH # 1.6 10^3/uL (1.5-5.0); LYMPH % 32.4 % (24.0-44.0); MEAN CORPUSCULAR HEMOGLOBIN 32.1 pg (27.0-33.0); MEAN CORPUSCULAR HGB CONC 34.7 g/dl (32.0-36.5); MEAN CORPUSCULAR VOLUME 92.4 fl (80.0-96.0); MONO # 0.3 10^3/uL (0.0-0.8); MONO % 5.4 % (2.0-8.0); NEUTROPHILS # 3.1 10^3/uL (1.5-8.5); NEUTROPHILS % 61.2 % (36.0-66.0); PLATELET COUNT, AUTOMATED 231 10^3/uL (150-450); RED BLOOD COUNT 4.08 10^6/uL (4.00-5.40)
[2024-08-31 15:01] LABS: BLOOD UREA NITROGEN 10 MG/DL (9-23); CARBON DIOXIDE LEVEL 24 MMOL/L (20-31); CHLORIDE LEVEL 107 MMOL/L (98-107); CK-MB VALUE MASS < 1.0 NG/ML (<3.6); CREATININE FOR GFR 0.73 MG/DL (0.55-1.30); GLOMERULAR FILTRATION RATE > 90.0 (>60); GLUCOSE, FASTING 103 MG/DL (60-100); SODIUM LEVEL 139 MMOL/L (136-145)
[2024-08-31 15:03] LABS: CPK CREATINE PHOSPHOKINASE 66 U/L (34-145); MB/CK RELATIVE INDEX 1.51 (< OR =4)
[2024-08-31 16:11] LABS: MAGNESIUM LEVEL 1.9 MG/DL (1.8-2.4)
[2024-08-31 16:13] LABS: CK-MB VALUE MASS < 1.0 NG/ML (<3.6); CPK CREATINE PHOSPHOKINASE 70 U/L (34-145); MB/CK RELATIVE INDEX 1.42 (< OR =4)
[2024-08-31 16:30] VITALS: BP 100/69
[2024-08-31 16:45] VITALS: O2SAT 97
== END 2024-08-31 17:11 | disposition home or self-care (01) ==
LOC: M ED 14:02 → EDBD 14:02 → M ED 17:11
DX: I47.19 Other supraventricular tachycardia (principal); K21.9 Gastro-esophageal reflux disease without esophagitis; M54.50 Low back pain, unspecified; F41.9 Anxiety disorder, unspecified; Z79.899 Other long term (current) drug therapy; Z88.8 Allergy status to other drugs, medicaments and biological substances

== ENCOUNTER 2024-09-15 10:58 | Observation (INO) | payer OTHER ==
[~2024-09-15] VITALS: Ht 160 cm; Wt 61.4 kg
[~2024-09-15 10:58] MED LIST changes: -LEXA1TAB2; +LIDO1ADH93 TOP; -LIDO5DIS41 TOP
[2024-09-15 11:48] LABS: BASO % 0.2 % (0.0-1.0); EOS % 0.8 % (0.0-3.0); HEMATOCRIT 35.6 % (36.0-47.0); HEMOGLOBIN 12.6 g/dl (12.0-15.5); LYMPH # 2.3 10^3/uL (1.5-5.0); LYMPH % 43.1 % (24.0-44.0); MEAN CORPUSCULAR HEMOGLOBIN 32.1 pg (27.0-33.0); MEAN CORPUSCULAR HGB CONC 35.4 g/dl (32.0-36.5); MEAN CORPUSCULAR VOLUME 90.6 fl (80.0-96.0); MONO # 0.4 10^3/uL (0.0-0.8); MONO % 6.7 % (2.0-8.0); NEUTROPHILS # 2.6 10^3/uL (1.5-8.5); NEUTROPHILS % 49.2 % (36.0-66.0); PLATELET COUNT, AUTOMATED 258 10^3/uL (150-450); RED BLOOD COUNT 3.93 10^6/uL (4.00-5.40); WHITE BLOOD COUNT 5.2 10^3/uL (4.0-10.0)
[2024-09-15 12:38] LABS: BLOOD UREA NITROGEN 11 MG/DL (9-23); CALCIUM LEVEL 9.3 MG/DL (8.5-10.1); CARBON DIOXIDE LEVEL 22 MMOL/L (20-31); CHLORIDE LEVEL 104 MMOL/L (98-107); CK-MB VALUE MASS < 1.0 NG/ML (<3.6); CPK CREATINE PHOSPHOKINASE 61 U/L (34-145); CREATININE FOR GFR 0.59 MG/DL (0.55-1.30); GLOMERULAR FILTRATION RATE > 90.0 (>60); GLUCOSE, FASTING 92 MG/DL (60-100); MB/CK RELATIVE INDEX 1.63 (< OR =4); POTASSIUM SERUM 3.2 MMOL/L (3.5-5.1); SODIUM LEVEL 139 MMOL/L (136-145)
[2024-09-15 13:11] LABS: ALKALINE PHOSPHATASE 70 U/L (35-104); ALT/SGPT 13 U/L (7.0-40); AST/SGOT 14 U/L (<34); BILIRUBIN,DIRECT 0.4 MG/DL (<0.4); BILIRUBIN,TOTAL 1.3 MG/DL (0.3-1.2); MAGNESIUM LEVEL 1.7 MG/DL (1.8-2.4); PHOSPHORUS LEVEL 3.7 MG/DL (2.5-4.9); TOTAL PROTEIN 6.8 G/DL (5.7-8.2)
[2024-09-15 13:13] LABS: THYROID STIMULATING HORMONE 0.796 uIU/ML (0.55-4.78)
[2024-09-15] MEDS: POTASSIUM CHLORIDE 10MEQ SR TABLET PO ONE (13:26)
[2024-09-15 13:40] LABS: CK-MB VALUE MASS < 1.0 NG/ML (<3.6)
[2024-09-15 13:48] LABS: CPK CREATINE PHOSPHOKINASE 70 U/L (34-145); MB/CK RELATIVE INDEX 1.42 (< OR =4)
[2024-09-15] MEDS: MAG SULF 1GM/100ML (MAG RUN) 1 GM in IV 1 EA IV ONE (13:56)
[2024-09-15] MEDS: NS (Normal Saline) 0.9% 1,000 ML IV ONE (15:42)
[2024-09-15] MEDS: NS (Normal Saline) 0.9% 1,000 ML IV SCH (18:59)
[2024-09-15] MEDS ORDERED: ACETAMINOPHEN 325 MG TAB PO PRN (19:55)
[2024-09-15] MEDS ORDERED: MOM 30ML SUSPENSION UDC PO PRN (20:05)
[2024-09-15] MEDS ORDERED: MAALOX 30 ML SUSP *UDC PO PRN (20:05)
[2024-09-15] MEDS ORDERED: ACET-683 PO (22:23)
[2024-09-15] MEDS ORDERED: METO1TAB87 PO (22:23)
[2024-09-15] MEDS ORDERED: HOME MED LIST COMPLETE! XX SCH (22:25)
[2024-09-15] MEDS: diazePAM 5MG TABLET PO STA (22:39)
[2024-09-15] MEDS: DOCUSATE SODIUM 100MG CAPSULE PO SCH (22:39)
[2024-09-15] MEDS: ASPIRIN 81MG CHEW TABLET PO STA (22:39)
[2024-09-16 00:22] LABS: VENOUS BASE EXCESS -1.9 (-2.0-2.0); VENOUS HCO3 23.9 MMOL/L (23.0-27.0); VENOUS O2 SATURATION 85.3 % (60.0-80.0); VENOUS PARTIAL PRESSURE CO2 44.7 mmHg (38.0-50.0); VENOUS PARTIAL PRESSURE O2 52.9 mmHg (30.0-50.0); VENOUS PH 7.346 UNITS (7.330-7.430); VENOUS STANDARD HCO3 22.6 MMOL/L; VENOUS TOTAL CO2 25.3 MMOL/L (24.0-28.0)
[2024-09-16 00:44] LABS: D-DIMER QUANT < 0.27 ug/mL (<0.5); INR 1.03; PARTIAL THROMBOPLASTIN TIME 31.6 SECONDS (24.8-34.2); PROTHROMBIN TIME 13.8 SECONDS (12.5-14.5)
[2024-09-16 00:57] LABS: ALBUMIN 3.7 G/DL (3.2-5.2); ALKALINE PHOSPHATASE 64 U/L (35-104); ALT/SGPT 13 U/L (7.0-40); AST/SGOT 12 U/L (<34); BILIRUBIN,TOTAL 1.7 MG/DL (0.3-1.2); BLOOD UREA NITROGEN 8 MG/DL (9-23); CALCIUM LEVEL 8.6 MG/DL (8.5-10.1); CARBON DIOXIDE LEVEL 25 MMOL/L (20-31); CHLORIDE LEVEL 108 MMOL/L (98-107); CREATININE FOR GFR 0.68 MG/DL (0.55-1.30); GLOMERULAR FILTRATION RATE > 90.0 (>60); GLUCOSE, FASTING 114 MG/DL (60-100); SODIUM LEVEL 141 MMOL/L (136-145); TOTAL PROTEIN 6.3 G/DL (5.7-8.2)
[2024-09-16 06:35] LABS: HEMATOCRIT 35.9 % (36.0-47.0); HEMOGLOBIN 12.1 g/dl (12.0-15.5); MEAN CORPUSCULAR HEMOGLOBIN 31.8 pg (27.0-33.0); MEAN CORPUSCULAR HGB CONC 33.7 g/dl (32.0-36.5); MEAN CORPUSCULAR VOLUME 94.5 fl (80.0-96.0); PLATELET COUNT, AUTOMATED 244 10^3/uL (150-450); WHITE BLOOD COUNT 5.4 10^3/uL (4.0-10.0)
[2024-09-16 06:59] LABS: ALBUMIN 3.6 G/DL (3.2-5.2); ALKALINE PHOSPHATASE 62 U/L (35-104); ALT/SGPT 12 U/L (7.0-40); AST/SGOT 13 U/L (<34); BILIRUBIN,TOTAL 1.5 MG/DL (0.3-1.2); BLOOD UREA NITROGEN 7 MG/DL (9-23); CALCIUM LEVEL 8.7 MG/DL (8.5-10.1); CARBON DIOXIDE LEVEL 25 MMOL/L (20-31); CHLORIDE LEVEL 108 MMOL/L (98-107); CHOLESTEROL LEVEL 164 MG/DL (<200); CHOLESTEROL RISK RATIO 3.45 (<5); CREATININE FOR GFR 0.65 MG/DL (0.55-1.30); GLOMERULAR FILTRATION RATE > 90.0 (>60); GLUCOSE, FASTING 85 MG/DL (60-100); HDL CHOLESTEROL 47.5 MG/DL (>40); LDL CHOLESTEROL 105.7 MG/DL (<100); MAGNESIUM LEVEL 1.9 MG/DL (1.8-2.4); NON-HDL-C 116.5 MG/DL; POTASSIUM SERUM 4.2 MMOL/L (3.5-5.1); SODIUM LEVEL 141 MMOL/L (136-145); TOTAL PROTEIN 6.1 G/DL (5.7-8.2); TRIGLYCERIDES LEVEL 54 MG/DL (<150)
[2024-09-16 07:10] LABS: PROCALCITONIN <0.04 ng/ml
[2024-09-16 12:00] VITALS: BP 96/67
[2024-09-16 12:04] VITALS: TEMP 98.4; O2SAT 99
[2024-09-18] MEDS ORDERED: MAGN1TAB26 PO (20:17)
[2024-09-19] MEDS ORDERED: ELIQ5TAB PO (13:10)
== END 2024-09-16 12:12 | disposition home or self-care (01) ==
LOC: EDBD 10:58 → M ED 10:58 → M ED INP 10:59
PROVIDERS: ADMIT Student in an Organized Health Care Education/Training Program; ATTEND Student in an Organized Health Care Education/Training Program
DX: J98.11 Atelectasis (principal); R00.0 Tachycardia, unspecified; M54.9 Dorsalgia, unspecified; G89.29 Other chronic pain; K21.9 Gastro-esophageal reflux disease without esophagitis; G90.A Postural orthostatic tachycardia syndrome [POTS]; I95.9 Hypotension, unspecified; R55 Syncope and collapse; M25.551 Pain in right hip; M25.552 Pain in left hip; F41.9 Anxiety disorder, unspecified; F32.A Depression, unspecified; R07.89 Other chest pain; Z86.19 Personal history of other infectious and parasitic diseases; R42 Dizziness and giddiness; R11.0 Nausea; Z90.49 Acquired absence of other specified parts of digestive tract; Z90.89 Acquired absence of other organs; Z98.51 Tubal ligation status; Z98.1 Arthrodesis status; Z82.49 Family history of ischemic heart disease and other diseases of the circulatory system; Z88.8 Allergy status to other drugs, medicaments and biological substances; Z79.899 Other long term (current) drug therapy
CPT/HCPCS: 36415; 71045; 71275; 76705; 80048; 80053; 80061; 80076; 82550; 82553; 82803; 83735; 83880; 84100; 84145; 84439; 84443; 84484; 85025; 85027; 85379; 85610; 85730; 87040; 93005; 93041; 93971; 94760; 96361; 96365; 97161; 99285; J3475

== ENCOUNTER 2024-09-22 12:43 | Emergency (ER) | payer OTHER ==
[~2024-09-22] VITALS: Ht 160 cm; Wt 67.1 kg
[~2024-09-22 12:43] MED LIST changes: +ACET-683 PO; +ELIQ5TAB PO; +MAGN1TAB26 PO
[2024-09-22] MEDS ORDERED: ISOVUE-370 76% 100 ML VIAL As Ordered ONE (13:49)
[2024-09-22 14:05] LABS: BASO % 0.1 % (0.0-1.0); EOS # 0.1 10^3/uL (0.0-0.5); EOS % 0.8 % (0.0-3.0); HEMATOCRIT 34.5 % (36.0-47.0); HEMOGLOBIN 11.9 g/dl (12.0-15.5); LYMPH # 2.1 10^3/uL (1.5-5.0); MEAN CORPUSCULAR HEMOGLOBIN 31.7 pg (27.0-33.0); MEAN CORPUSCULAR HGB CONC 34.5 g/dl (32.0-36.5); MONO # 0.7 10^3/uL (0.0-0.8); MONO % 8.4 % (2.0-8.0); NEUTROPHILS # 5.4 10^3/uL (1.5-8.5); NEUTROPHILS % 65.5 % (36.0-66.0); PLATELET COUNT, AUTOMATED 281 10^3/uL (150-450); RED BLOOD COUNT 3.75 10^6/uL (4.00-5.40); WHITE BLOOD COUNT 8.3 10^3/uL (4.0-10.0)
[2024-09-22 14:27] LABS: INR 0.97; PARTIAL THROMBOPLASTIN TIME 32.2 SECONDS (24.8-34.2); PROTHROMBIN TIME 13.2 SECONDS (12.5-14.5)
[2024-09-22 14:29] LABS: CK-MB VALUE MASS < 1.0 NG/ML (<3.6)
[2024-09-22 14:30] LABS: LIPASE 34 U/L (12-53)
[2024-09-22 14:31] LABS: CPK CREATINE PHOSPHOKINASE 48 U/L (34-145); MB/CK RELATIVE INDEX 2.08 (< OR =4)
[2024-09-22 14:33] LABS: FREE T4 1.07 NG/DL (0.89-1.76)
[2024-09-22 14:41] LABS: ALKALINE PHOSPHATASE 72 U/L (35-104); ALT/SGPT 12 U/L (7.0-40); AST/SGOT 11 U/L (<34); BILIRUBIN,DIRECT 0.4 MG/DL (<0.4); BILIRUBIN,TOTAL 1.3 MG/DL (0.3-1.2); BLOOD UREA NITROGEN < 5 MG/DL (9-23); CARBON DIOXIDE LEVEL 26 MMOL/L (20-31); CHLORIDE LEVEL 108 MMOL/L (98-107); CREATININE FOR GFR 0.57 MG/DL (0.55-1.30); GLOMERULAR FILTRATION RATE > 90.0 (>60); GLUCOSE, FASTING 95 MG/DL (60-100); POTASSIUM SERUM 3.8 MMOL/L (3.5-5.1); SODIUM LEVEL 143 MMOL/L (136-145); TOTAL PROTEIN 6.8 G/DL (5.7-8.2)
[2024-09-22] MEDS: MORPHINE 2 MG/ML 1 ML VIAL IV PRN (15:01)
[2024-09-22 15:49] LABS: CK-MB VALUE MASS < 1.0 NG/ML (<3.6)
[2024-09-22 15:51] LABS: CPK CREATINE PHOSPHOKINASE 34 U/L (34-145); MB/CK RELATIVE INDEX 2.94 (< OR =4)
[2024-09-22] MEDS ORDERED: DIAZ10TA2 PO (18:16)
[2024-09-22 18:30] VITALS: BP 98/72; TEMP 98.2; O2SAT 99
[2024-09-22] MEDS: diazePAM 10 MG TAB PO ONE (18:30)
[2024-09-28] MEDS ORDERED: CALC600T61 PO (11:41)
[2024-09-28] MEDS ORDERED: D3 H10002 PO (11:41)
[2024-10-04] MEDS ORDERED: ELIQ5TAB PO (11:39)
[2024-10-04] MEDS ORDERED: AMOX500C PO (11:44)
[2024-10-04] MEDS ORDERED: TUMS500C PO (11:47)
[2024-10-06] MEDS ORDERED: AMOX875T2 PO (09:33)
[2024-10-24] MEDS ORDERED: PERC5TAB12 PO (05:28)
[2024-10-28] MEDS ORDERED: CEPH500C PO (15:23)
== END 2024-09-22 18:38 | disposition home or self-care (01) ==
LOC: M ED 12:43 → EDBD 12:43 → M ED 18:38
DX: R51.9 Headache, unspecified (principal); R00.2 Palpitations; K21.9 Gastro-esophageal reflux disease without esophagitis; I47.19 Other supraventricular tachycardia; F41.9 Anxiety disorder, unspecified; Z79.899 Other long term (current) drug therapy; Z88.8 Allergy status to other drugs, medicaments and biological substances
CPT/HCPCS: 70450; 70496; 70498; 71045; 80048; 80076; 82550; 82553; 83690; 84439; 84443; 84484; 85025; 85610; 85730; 93005; 93041; 93971; 94760; 96374; 99285; Q9967

== ENCOUNTER 2024-10-09 14:58 | Emergency (ER) | payer OTHER ==
[~2024-10-09] VITALS: Ht 160 cm; Wt 61.5 kg
[2024-10-09] VITALS (7 sets, daily range): BP systolic 89–112; BP diastolic 49–72; TEMP 97–97.5; O2SAT 96–98
[~2024-10-09 14:58] MED LIST changes: +AMOX875T2 PO; +CALC600T61 PO; +D3 H10002 PO; +DIAZ10TA2 PO; -IBUP-1022 PO; +IBUP600T42 PO; +TUMS500C PO
[2024-10-09] MEDS: NS (Normal Saline) 0.9% 1,000 ML IV ONE (16:12)
[2024-10-09 16:25] LABS: BASO % 0.5 % (0.0-1.0); EOS # 0.1 10^3/uL (0.0-0.5); EOS % 2.4 % (0.0-3.0); HEMATOCRIT 33.1 % (36.0-47.0); HEMOGLOBIN 11.1 g/dl (12.0-15.5); LYMPH # 2.2 10^3/uL (1.5-5.0); LYMPH % 52.5 % (24.0-44.0); MEAN CORPUSCULAR HGB CONC 33.5 g/dl (32.0-36.5); MEAN CORPUSCULAR VOLUME 95.4 fl (80.0-96.0); MONO # 0.3 10^3/uL (0.0-0.8); MONO % 8.1 % (2.0-8.0); NEUTROPHILS # 1.5 10^3/uL (1.5-8.5); NEUTROPHILS % 36.3 % (36.0-66.0); PLATELET COUNT, AUTOMATED 292 10^3/uL (150-450); RED BLOOD COUNT 3.47 10^6/uL (4.00-5.40); WHITE BLOOD COUNT 4.2 10^3/uL (4.0-10.0)
[2024-10-09 16:37] LABS: INR 1.14; PARTIAL THROMBOPLASTIN TIME 39.2 SECONDS (24.8-34.2); PROTHROMBIN TIME 14.9 SECONDS (12.5-14.5)
[2024-10-09 16:48] LABS: BLOOD UREA NITROGEN 13 MG/DL (9-23); CALCIUM LEVEL 8.7 MG/DL (8.5-10.1); CARBON DIOXIDE LEVEL 30 MMOL/L (20-31); CHLORIDE LEVEL 104 MMOL/L (98-107); GLOMERULAR FILTRATION RATE > 90.0 (>60); GLUCOSE, FASTING 81 MG/DL (60-100); HCG, SERUM QUALITATIVE NEGATIVE (NEGATIVE); POTASSIUM SERUM 3.7 MMOL/L (3.5-5.1); SODIUM LEVEL 141 MMOL/L (136-145)
[2024-10-09 17:56] LABS: HEMATOCRIT 28.3 % (36.0-47.0); HEMOGLOBIN 9.2 g/dl (12.0-15.5)
[2024-10-09] MEDS: medroxyPROGESTERone 5 MG TABLET PO SCH (19:09)
[2024-10-10 01:24] LABS: HEMATOCRIT 35.1 % (36.0-47.0)
[2024-10-10 01:25] LABS: HEMOGLOBIN 11.8 g/dl (12.0-15.5)
[2024-10-10 01:45] VITALS: O2SAT 99
[2024-10-10 01:50] VITALS: BP 100/68
[2024-10-10] MEDS ORDERED: PROV10TA PO (02:03)
[2024-10-24] MEDS ORDERED: PERC5TAB12 PO (05:28)
[2024-10-28] MEDS ORDERED: CEPH500C PO (15:23)
[2024-12-09] MEDS ORDERED: BACL5TAB2 PO (09:00)
[2024-12-09] MEDS ORDERED: MELO7.5T35 PO (09:00)
== END 2024-10-10 02:16 | disposition home or self-care (01) ==
LOC: M ED 14:58 → EDBD 14:58 → M ED 10-10 02:16
DX: N93.8 Other specified abnormal uterine and vaginal bleeding (principal); G90.A Postural orthostatic tachycardia syndrome [POTS]; I47.10 Supraventricular tachycardia, unspecified; Z86.718 Personal history of other venous thrombosis and embolism; Z79.01 Long term (current) use of anticoagulants; Z79.899 Other long term (current) drug therapy; Z88.1 Allergy status to other antibiotic agents
CPT/HCPCS: 36430; 80048; 84703; 85014; 85018; 85025; 85610; 85730; 86850; 86900; 86901; 86920; 93041; 96360; 96361; 99285; P9016

== ENCOUNTER 2024-11-27 11:48 | Emergency (ER) | payer OTHER ==
[~2024-11-27] VITALS: Ht 160 cm; Wt 60.6 kg
[~2024-11-27 11:48] MED LIST changes: +CEPH500C PO; +IBUP-1022 PO; -IBUP600T42 PO; +PERC5TAB12 PO; +PROV10TA PO
[2024-11-27 14:07] LABS: BASO # 0.0 10^3/uL (0.0-0.2); BASO % 0.1 % (0.0-1.0); EOS # 0.1 10^3/uL (0.0-0.5); EOS % 1.2 % (0.0-3.0); LYMPH # 3.1 10^3/uL (1.5-5.0); LYMPH % 44.6 % (24.0-44.0); MONO # 0.6 10^3/uL (0.0-0.8); MONO % 8.9 % (2.0-8.0); NEUTROPHILS # 3.1 10^3/uL (1.5-8.5); NEUTROPHILS % 45.1 % (36.0-66.0); PLATELET COUNT, AUTOMATED 220 10^3/uL (150-450)
[2024-11-27 14:17] LABS: INR 0.92
[2024-11-27 14:36] LABS: ALT/SGPT 127 U/L (7.0-40); AST/SGOT 80 U/L (<34); CALCIUM LEVEL 8.7 MG/DL (8.5-10.1); CARBON DIOXIDE LEVEL 28 MMOL/L (20-31); CHLORIDE LEVEL 105 MMOL/L (98-107); CK-MB VALUE MASS < 1.0 NG/ML (<3.6); CREATININE FOR GFR 0.65 MG/DL (0.55-1.30); GLOMERULAR FILTRATION RATE > 90.0 (>60); POTASSIUM SERUM 3.3 MMOL/L (3.5-5.1); SODIUM LEVEL 143 MMOL/L (136-145)
[2024-11-27 14:37] LABS: FREE T4 0.89 NG/DL (0.89-1.76)
[2024-11-27 14:38] LABS: CPK CREATINE PHOSPHOKINASE 56 U/L (34-145)
[2024-11-27 15:00] LABS: HCG, SERUM QUALITATIVE NEGATIVE (NEGATIVE)
[2024-11-27] MEDS ORDERED: ISOVUE-370 76% 100 ML VIAL As Ordered ONE (15:46)
[2024-11-27] MEDS: NS (Normal Saline) 0.9% 1,000 ML IV ONE (16:00)
[2024-11-27 16:15] LABS: CK-MB VALUE MASS < 1.0 NG/ML (<3.6)
[2024-11-27 16:16] LABS: CPK CREATINE PHOSPHOKINASE 61 U/L (34-145)
[2024-11-27] MEDS ORDERED: ELIQ5TAB PO (20:04)
[2024-11-27 20:16] VITALS: BP 96/65; TEMP 97.2; O2SAT 99
[2024-11-27] MEDS: APIXABAN 5 MG TAB PO ONE (20:20)
== END 2024-11-27 20:30 | disposition home or self-care (01) ==
LOC: M ED 11:48 → EDBD 11:48 → M ED 20:30
DX: I95.1 Orthostatic hypotension (principal); M81.0 Age-related osteoporosis without current pathological fracture; F41.9 Anxiety disorder, unspecified; F32.A Depression, unspecified; G89.29 Other chronic pain; M54.9 Dorsalgia, unspecified; K21.9 Gastro-esophageal reflux disease without esophagitis; I47.10 Supraventricular tachycardia, unspecified; Z79.01 Long term (current) use of anticoagulants; Z79.899 Other long term (current) drug therapy; Z88.8 Allergy status to other drugs, medicaments and biological substances
CPT/HCPCS: 70450; 70496; 70498; 71045; 71260; 80047; 80048; 80076; 82550; 82553; 83880; 84439; 84443; 84484; 84703; 85025; 85610; 85730; 93005; 93041; 94760; 99285; Q9967

== ENCOUNTER 2024-12-05 14:07 | Emergency (ER) | payer OTHER ==
[~2024-12-05] VITALS: Ht 160 cm; Wt 64.7 kg
[2024-12-05 14:11] VITALS: TEMP 98.7
[2024-12-05 15:48] VITALS: BP 104/69
[2024-12-05 17:30] VITALS: O2SAT 100
== END 2024-12-05 19:08 | disposition home or self-care (01) ==
LOC: M ED 14:07
DX: S70.02XA Contusion of left hip, initial encounter (principal); W19.XXXA Unspecified fall, initial encounter; Y92.9 Unspecified place or not applicable; Y93.9 Activity, unspecified; Y99.9 Unspecified external cause status; K21.9 Gastro-esophageal reflux disease without esophagitis; M54.9 Dorsalgia, unspecified; F41.9 Anxiety disorder, unspecified; F32.A Depression, unspecified; I47.10 Supraventricular tachycardia, unspecified; Z79.899 Other long term (current) drug therapy; Z88.8 Allergy status to other drugs, medicaments and biological substances

== ENCOUNTER 2024-12-09 08:44 | Emergency (ER) | payer OTHER ==
[~2024-12-09] VITALS: Ht 160 cm; Wt 61.4 kg
[2024-12-09] MEDS ORDERED: MELO7.5T35 (09:00)
[2024-12-09] MEDS ORDERED: BACL5TAB2 (09:00)
[2024-12-09 09:30] LABS: BASO # 0.0 10^3/uL (0.0-0.2); BASO % 0.2 % (0.0-1.0); EOS # 0.0 10^3/uL (0.0-0.5); EOS % 0.6 % (0.0-3.0); LYMPH # 1.4 10^3/uL (1.5-5.0); LYMPH % 27.3 % (24.0-44.0); MONO # 0.3 10^3/uL (0.0-0.8); MONO % 5.1 % (2.0-8.0); NEUTROPHILS # 3.4 10^3/uL (1.5-8.5); NEUTROPHILS % 66.6 % (36.0-66.0); PLATELET COUNT, AUTOMATED 289 10^3/uL (150-450)
[2024-12-09 09:55] LABS: HCG, SERUM QUANTITATIVE < 2.6 MIU/ML (<4.2)
[2024-12-09 09:57] LABS: CALCIUM LEVEL 9.2 MG/DL (8.5-10.1); CARBON DIOXIDE LEVEL 27 MMOL/L (20-31); CHLORIDE LEVEL 105 MMOL/L (98-107); CREATININE FOR GFR 0.67 MG/DL (0.55-1.30); GLOMERULAR FILTRATION RATE > 90.0 (>60); POTASSIUM SERUM 4.3 MMOL/L (3.5-5.1); SODIUM LEVEL 141 MMOL/L (136-145)
[2024-12-09 11:42] VITALS: BP 104/64; TEMP 98.1; O2SAT 100
== END 2024-12-09 12:06 | disposition home or self-care (01) ==
LOC: M ED 08:44
DX: N93.8 Other specified abnormal uterine and vaginal bleeding (principal); I47.10 Supraventricular tachycardia, unspecified; Z86.79 Personal history of other diseases of the circulatory system; Z79.899 Other long term (current) drug therapy; Z88.8 Allergy status to other drugs, medicaments and biological substances

== ENCOUNTER 2024-12-26 06:07 | Emergency (ER) | payer OTHER ==
[~2024-12-26] VITALS: Ht 160 cm; Wt 61.8 kg
[~2024-12-26 06:07] MED LIST changes: +BACL5TAB2 PO; -IBUP-1022 PO; +IBUP600T42 PO; +MELO7.5T35 PO
[2024-12-26 07:49] LABS: BASO # 0.0 10^3/uL (0.0-0.2); BASO % 0.2 % (0.0-1.0); EOS # 0.1 10^3/uL (0.0-0.5); EOS % 1.6 % (0.0-3.0); LYMPH # 2.5 10^3/uL (1.5-5.0); LYMPH % 49.6 % (24.0-44.0); MONO # 0.5 10^3/uL (0.0-0.8); MONO % 9.5 % (2.0-8.0); NEUTROPHILS # 2.0 10^3/uL (1.5-8.5); NEUTROPHILS % 38.9 % (36.0-66.0); PLATELET COUNT, AUTOMATED 198 10^3/uL (150-450)
[2024-12-26 08:04] LABS: INR 0.99
[2024-12-26 08:45] LABS: CALCIUM LEVEL 5.2 MG/DL (8.5-10.1); CARBON DIOXIDE LEVEL 17 MMOL/L (20-31); CHLORIDE LEVEL 120 MMOL/L (98-107); CREATININE FOR GFR 0.37 MG/DL (0.55-1.30); GLOMERULAR FILTRATION RATE > 90.0 (>60); POTASSIUM SERUM 2.7 MMOL/L (3.5-5.1); SODIUM LEVEL 149 MMOL/L (136-145)
[2024-12-26 09:43] LABS: CALCIUM LEVEL 9.1 MG/DL (8.5-10.1); CARBON DIOXIDE LEVEL 25 MMOL/L (20-31); CHLORIDE LEVEL 110 MMOL/L (98-107); CREATININE FOR GFR 0.59 MG/DL (0.55-1.30); GLOMERULAR FILTRATION RATE > 90.0 (>60); POTASSIUM SERUM 4.2 MMOL/L (3.5-5.1); SODIUM LEVEL 144 MMOL/L (136-145)
[2024-12-26] MEDS ORDERED: DIAZ10TA2 PO (09:55)
[2024-12-26] MEDS ORDERED: HOME MED LIST COMPLETE! XX SCH (09:55)
[2024-12-26] MEDS ORDERED: ELIQ5TAB PO (09:55)
[2024-12-26] MEDS ORDERED: PERCOCET PO (09:55)
[2024-12-26] MEDS ORDERED: VITA-325 PO (09:55)
[2024-12-26 12:00] VITALS: BP 111/77; TEMP 98.5; O2SAT 98
== END 2024-12-26 12:11 | disposition home or self-care (01) ==
LOC: M ED 06:07
DX: R42 Dizziness and giddiness (principal); T42.4X5A Adverse effect of benzodiazepines, initial encounter; F45.0 Somatization disorder; F41.9 Anxiety disorder, unspecified; F32.A Depression, unspecified; M51.9 Unspecified thoracic, thoracolumbar and lumbosacral intervertebral disc disorder; Z86.718 Personal history of other venous thrombosis and embolism; Z95.818 Presence of other cardiac implants and grafts; Z79.899 Other long term (current) drug therapy; Z88.8 Allergy status to other drugs, medicaments and biological substances

== ENCOUNTER 2025-01-03 07:35 | Emergency (ER) | payer OTHER ==
[~2025-01-03] VITALS: Ht 160 cm; Wt 61.4 kg
[~2025-01-03 07:35] MED LIST changes: +VITA-325 PO
[2025-01-03] MEDS: NS (Normal Saline) 0.9% 1,000 ML IV ONE (08:42)
[2025-01-03 08:47] LABS: INR 0.91
[2025-01-03 08:49] LABS: BASO # 0.0 10^3/uL (0.0-0.2); BASO % 0.2 % (0.0-1.0); EOS # 0.0 10^3/uL (0.0-0.5); EOS % 0.9 % (0.0-3.0); LYMPH # 2.1 10^3/uL (1.5-5.0); LYMPH % 46.4 % (24.0-44.0); MONO # 0.3 10^3/uL (0.0-0.8); MONO % 7.5 % (2.0-8.0); NEUTROPHILS # 2.0 10^3/uL (1.5-8.5); NEUTROPHILS % 45.0 % (36.0-66.0); PLATELET COUNT, AUTOMATED 243 10^3/uL (150-450)
[2025-01-03 09:13] LABS: CALCIUM LEVEL 8.9 MG/DL (8.5-10.1); CARBON DIOXIDE LEVEL 24 MMOL/L (20-31); CHLORIDE LEVEL 109 MMOL/L (98-107); CREATININE FOR GFR 0.57 MG/DL (0.55-1.30); GLOMERULAR FILTRATION RATE > 90.0 (>60); MAGNESIUM LEVEL 1.8 MG/DL (1.8-2.4); POTASSIUM SERUM 3.6 MMOL/L (3.5-5.1); SODIUM LEVEL 144 MMOL/L (136-145)
[2025-01-03 09:14] LABS: CK-MB VALUE MASS < 1.0 NG/ML (<3.6)
[2025-01-03 09:18] LABS: CPK CREATINE PHOSPHOKINASE 86 U/L (34-145)
[2025-01-03 09:24] LABS: HCG, SERUM QUALITATIVE NEGATIVE (NEGATIVE)
[2025-01-03 10:29] LABS: CPK CREATINE PHOSPHOKINASE 71 U/L (34-145)
[2025-01-03 10:30] LABS: CK-MB VALUE MASS < 1.0 NG/ML (<3.6)
[2025-01-03 12:30] VITALS: BP 103/57; TEMP 98; O2SAT 99
== END 2025-01-03 12:41 | disposition home or self-care (01) ==
LOC: M ED 07:35
DX: M62.838 Other muscle spasm (principal); K21.9 Gastro-esophageal reflux disease without esophagitis; I47.10 Supraventricular tachycardia, unspecified; Z79.01 Long term (current) use of anticoagulants; Z79.899 Other long term (current) drug therapy; Z88.8 Allergy status to other drugs, medicaments and biological substances
CPT/HCPCS: 71045; 72040; 80048; 82550; 82553; 83690; 83735; 84443; 84484; 84703; 85025; 85610; 85730; 87486; 87581; 87633; 87798; 93005; 93041; 94760; 96361; 96374; 99285; J2060

== ENCOUNTER 2025-02-06 07:44 | Observation (INO) | payer OTHER ==
[~2025-02-06] VITALS: Ht 160 cm; Wt 59.1 kg
[2025-02-06] MEDS: diazePAM 2 MG TAB PO ONE (08:52)
[2025-02-06] MEDS: ESCITALOPRAM OXALATE 10 MG TABLET PO ONE (08:53)
[2025-02-06] MEDS: ASPIRIN 81 MG CHEWABLE TABLET PO ONE (08:53)
[2025-02-06] MEDS: ACETAMINOPHEN 325 MG TAB PO ONE (08:53)
[2025-02-06] MEDS: APIXABAN 5 MG TAB PO ONE (08:53)
[2025-02-06] MEDS: NS (Normal Saline) 0.9% 1,000 ML IV ONE ×3 (08:54→16:20)
[2025-02-06 09:13] LABS: BASO # 0.0 10^3/uL (0.0-0.2); BASO % 0.2 % (0.0-1.0); EOS # 0.1 10^3/uL (0.0-0.5); EOS % 0.9 % (0.0-3.0); LYMPH # 3.1 10^3/uL (1.5-5.0); LYMPH % 47.6 % (24.0-44.0); MONO # 0.4 10^3/uL (0.0-0.8); MONO % 6.3 % (2.0-8.0); NEUTROPHILS # 3.0 10^3/uL (1.5-8.5); NEUTROPHILS % 44.8 % (36.0-66.0); PLATELET COUNT, AUTOMATED 326 10^3/uL (150-450)
[2025-02-06] MEDS: METOPROLOL TART 25 MG TABLET PO ONE (09:30)
[2025-02-06 09:45] LABS: CALCIUM LEVEL 9.4 MG/DL (8.5-10.1); CARBON DIOXIDE LEVEL 28 MMOL/L (20-31); CHLORIDE LEVEL 103 MMOL/L (98-107); CK-MB VALUE MASS < 1.0 NG/ML (<3.6); CREATININE FOR GFR 0.55 MG/DL (0.55-1.30); GLOMERULAR FILTRATION RATE > 90.0 (>60); MAGNESIUM LEVEL 2.0 MG/DL (1.8-2.4); POTASSIUM SERUM 3.9 MMOL/L (3.5-5.1); SODIUM LEVEL 140 MMOL/L (136-145)
[2025-02-06 09:48] LABS: CPK CREATINE PHOSPHOKINASE 53 U/L (34-145)
[2025-02-06 10:36] LABS: CK-MB VALUE MASS < 1.0 NG/ML (<3.6)
[2025-02-06 10:40] LABS: CPK CREATINE PHOSPHOKINASE 47 U/L (34-145)
[2025-02-06] MEDS: ONDANSETRON 4MG 2ML VIAL IV ONE (11:55)
[2025-02-06] MEDS ORDERED: METOPROLOL TART 25 MG TABLET PO SCH (13:25)
[2025-02-06] MEDS ORDERED: HOME MED LIST COMPLETE! XX SCH (14:05)
[2025-02-06] MEDS ORDERED: DIAZ2TAB PO (14:05)
[2025-02-06] MEDS: MIDODRINE 5 MG TAB PO SCH (16:00)
[2025-02-06] MEDS ORDERED: ALBUTEROL 90 MCG/ACT 8 GM HFA INHALER INH PRN (16:20)
[2025-02-06] MEDS ORDERED: diazePAM 2 MG TAB PO PRN (16:20)
[2025-02-06] MEDS ORDERED: ISOVUE-370 76% 100 ML VIAL As Ordered ONE (18:36)
[2025-02-06 19:51] VITALS: BP 90/50
[2025-02-06] MEDS: LR 1,000 ML IV SCH (19:51)
[2025-02-06] MEDS: MIDODRINE 5 MG TAB PO ONE (19:51)
[2025-02-06] MEDS: ACETAMINOPHEN 500 MG TAB PO PRN (22:48)
[2025-02-06] MEDS: APIXABAN 5 MG TAB PO SCH (22:49)
[2025-02-07] MEDS: LIDOCAINE 5% PATCH TD ONE (03:53)
[2025-02-07 07:18] LABS: PLATELET COUNT, AUTOMATED 278 10^3/uL (150-450)
[2025-02-07 07:33] LABS: CALCIUM LEVEL 8.6 MG/DL (8.5-10.1); CARBON DIOXIDE LEVEL 28 MMOL/L (20-31); CHLORIDE LEVEL 106 MMOL/L (98-107); CREATININE FOR GFR 0.62 MG/DL (0.55-1.30); GLOMERULAR FILTRATION RATE > 90.0 (>60); POTASSIUM SERUM 4.2 MMOL/L (3.5-5.1); SODIUM LEVEL 142 MMOL/L (136-145)
[2025-02-07] MEDS: MIDODRINE 5 MG TAB PO SCH (08:22)
[2025-02-07] MEDS: ESCITALOPRAM OXALATE 10 MG TABLET PO SCH (08:23)
[2025-02-07] MEDS: ACETAMINOPHEN 500 MG TAB PO SCH (08:23)
[2025-02-07] MEDS: PERCOCET 5MG/325MG TAB PO PRN (08:23)
[2025-02-07] MEDS ORDERED: MIDO10TA3 PO (10:01)
[2025-02-07 13:10] VITALS: BP 117/68; TEMP 98.3; O2SAT 99
[2025-02-11] MEDS ORDERED: ONDA-282 (08:03)
[2025-02-11] MEDS ORDERED: FAMO1TAB11 (08:03)
[2025-02-11] MEDS ORDERED: CETI-24 (08:03)
[2025-02-11] MEDS ORDERED: NALO4SPR20 (08:03)
== END 2025-02-07 13:38 | disposition home or self-care (01) ==
LOC: EDBD 07:44 → M ED 07:44 → M ED INP 07:45
PROVIDERS: ADMIT Internal Medicine; ATTEND Internal Medicine
DX: R00.0 Tachycardia, unspecified (principal); I95.89 Other hypotension; F41.0 Panic disorder [episodic paroxysmal anxiety]; F32.9 Major depressive disorder, single episode, unspecified; M19.90 Unspecified osteoarthritis, unspecified site; Z86.718 Personal history of other venous thrombosis and embolism; Z86.79 Personal history of other diseases of the circulatory system; R53.1 Weakness; G43.909 Migraine, unspecified, not intractable, without status migrainosus; Z98.1 Arthrodesis status; Z90.49 Acquired absence of other specified parts of digestive tract; Z90.89 Acquired absence of other organs; Z98.51 Tubal ligation status; M62.830 Muscle spasm of back; Z88.8 Allergy status to other drugs, medicaments and biological substances; Z79.899 Other long term (current) drug therapy; Z79.01 Long term (current) use of anticoagulants
CPT/HCPCS: 36415; 70450; 71275; 80048; 82550; 82553; 83605; 83735; 84443; 84484; 85025; 85027; 93005; 93041; 94760; 96361; 96374; 99285; J2405; Q9967

== ENCOUNTER 2025-02-21 23:29 | Emergency (ER) | payer OTHER ==
[~2025-02-21] VITALS: Ht 160 cm; Wt 62.7 kg
[~2025-02-21 23:29] MED LIST changes: +CETI-24; +DIAZ2TAB PO; +FAMO1TAB11; +MIDO10TA3 PO; +NALO4SPR20; +ONDA-282
[2025-02-22] MEDS: KETOROLAC 60 MG/2 ML VIAL IM ONE (02:18)
[2025-02-22 02:58] VITALS: BP 111/69; TEMP 98.4; O2SAT 99
== END 2025-02-22 02:58 | disposition home or self-care (01) ==
LOC: M ED 23:29
DX: M25.551 Pain in right hip (principal); W19.XXXA Unspecified fall, initial encounter; Y92.9 Unspecified place or not applicable; Y93.9 Activity, unspecified; Y99.9 Unspecified external cause status; Z86.718 Personal history of other venous thrombosis and embolism; Z79.01 Long term (current) use of anticoagulants; Z79.899 Other long term (current) drug therapy; Z88.8 Allergy status to other drugs, medicaments and biological substances; Z88.5 Allergy status to narcotic agent
CPT/HCPCS: 73502; 76882; 96372; 99283; J1885

== ENCOUNTER 2025-03-07 01:44 | Emergency (ER) | payer OTHER ==
[~2025-03-07] VITALS: Ht 160 cm; Wt 64.0 kg
[2025-03-07 02:02] LABS: BASO # 0.0 10^3/uL (0.0-0.2); BASO % 0.4 % (0.0-1.0); EOS # 0.1 10^3/uL (0.0-0.5); EOS % 1.3 % (0.0-3.0); LYMPH # 2.9 10^3/uL (1.5-5.0); LYMPH % 60.9 % (24.0-44.0); MONO # 0.5 10^3/uL (0.0-0.8); MONO % 10.6 % (2.0-8.0); NEUTROPHILS # 1.3 10^3/uL (1.5-8.5); NEUTROPHILS % 26.8 % (36.0-66.0); PLATELET COUNT, AUTOMATED 307 10^3/uL (150-450)
[2025-03-07 02:23] LABS: INR 0.93
[2025-03-07] MEDS: NS (Normal Saline) 0.9% 1,000 ML IV ONE (02:25)
[2025-03-07] MEDS: MORPHINE 4 MG/ML 1 ML VIAL IV PRN (02:25)
[2025-03-07] MEDS: ONDANSETRON 4MG/2ML VIAL IV ONE (02:27)
[2025-03-07 02:28] LABS: CALCIUM LEVEL 9.0 MG/DL (8.5-10.1); CARBON DIOXIDE LEVEL 27 MMOL/L (20-31); CHLORIDE LEVEL 107 MMOL/L (98-107); CK-MB VALUE MASS < 1.0 NG/ML (<3.6); CPK CREATINE PHOSPHOKINASE 52 U/L (34-145); CREATININE FOR GFR 0.71 MG/DL (0.55-1.30); GLOMERULAR FILTRATION RATE > 90.0 (>60); POTASSIUM SERUM 3.6 MMOL/L (3.5-5.1); SODIUM LEVEL 142 MMOL/L (136-145)
[2025-03-07] MEDS ORDERED: ISOVUE-370 76% 100 ML VIAL As Ordered ONE (02:30)
[2025-03-07 03:03] LABS: ALT/SGPT 17.0 U/L (7.0-40); AST/SGOT 25.0 U/L (<34); MAGNESIUM LEVEL 1.9 MG/DL (1.8-2.4)
[2025-03-07 03:45] LABS: FREE T4 1.16 NG/DL (0.89-1.76)
[2025-03-07 04:01] LABS: CK-MB VALUE MASS < 1.0 NG/ML (<3.6)
[2025-03-07 04:16] LABS: CPK CREATINE PHOSPHOKINASE 39 U/L (34-145)
[2025-03-07 06:25] VITALS: TEMP 97
[2025-03-07 06:30] VITALS: BP 92/53; O2SAT 100
[2025-03-13 10:07] LABS: COPROPORPHYRIN I URINE 3 ug/L (0-15); COPROPORPHYRIN III URINE <1 ug/L (0-49); HEPTACARBOXYLPORPHYRIN URINE <1 ug/L (0-2); HEXACARBOXYLPORPHYRIN URINE <1 ug/L (0-1); PENTACARBOXYLPORPHYRIN URINE <1 ug/L (0-2); PORPHOBILINOGEN RANDOM URINE 0.6 mg/L (0.0-2.0); UROPORPHYRIN URINE <1 ug/L (0-20)
== END 2025-03-07 06:35 | disposition home or self-care (01) ==
LOC: M ED 01:44
DX: R00.0 Tachycardia, unspecified (principal); K59.00 Constipation, unspecified; N32.89 Other specified disorders of bladder; F32.9 Major depressive disorder, single episode, unspecified; F41.1 Generalized anxiety disorder; Z86.718 Personal history of other venous thrombosis and embolism; Z79.01 Long term (current) use of anticoagulants; Z79.899 Other long term (current) drug therapy; Z88.5 Allergy status to narcotic agent; Z88.8 Allergy status to other drugs, medicaments and biological substances
CPT/HCPCS: 71275; 74177; 80048; 80076; 82135; 82550; 82553; 82570; 83690; 83735; 84110; 84120; 84439; 84443; 84484; 85025; 85610; 93005; 93041; 94760; 96361; 96374; 96375; 96376; 99285; J2405; J2765; Q9967

== ENCOUNTER 2025-03-14 18:09 | Emergency (ER) | payer OTHER ==
[~2025-03-14] VITALS: Ht 160 cm; Wt 63.6 kg
[2025-03-14] MEDS: NS (Normal Saline) 0.9% 1,000 ML IV ONE (21:17)
[2025-03-14] MEDS: diphenhydrAMINE 50 MG/ML VIAL IV STA (21:17)
[2025-03-14] MEDS: KETOROLAC 30 MG/ML 1 ML VIAL IV ONE (21:26)
[2025-03-14 21:43] LABS: AMPHETAMINES LEVEL URINE NEGATIVE (NEGATIVE); BARBITURATES URINE NEGATIVE (NEGATIVE); BASO # 0.0 10^3/uL (0.0-0.2); BASO % 0.2 % (0.0-1.0); EOS # 0.1 10^3/uL (0.0-0.5); EOS % 1.0 % (0.0-3.0); INR 0.91; LYMPH # 3.3 10^3/uL (1.5-5.0); LYMPH % 56.0 % (24.0-44.0); MONO # 0.3 10^3/uL (0.0-0.8); MONO % 5.5 % (2.0-8.0); NEUTROPHILS # 2.2 10^3/uL (1.5-8.5); NEUTROPHILS % 37.1 % (36.0-66.0); PLATELET COUNT, AUTOMATED 285 10^3/uL (150-450)
[2025-03-14 21:44] LABS: CANNABINOIDS URINE NEGATIVE (NEGATIVE); COCAINE METABOLITE URINE NEGATIVE (NEGATIVE); METHADONE URINE NEGATIVE (NEGATIVE); PHENCYCLIDINE URINE NEGATIVE (NEGATIVE)
[2025-03-14 21:46] VITALS: BP 94/64; TEMP 96.4; O2SAT 98
[2025-03-14 21:46] LABS: BENZODIAZEPINES URINE POSITIVE (NEGATIVE); CALCIUM LEVEL 9.4 MG/DL (8.5-10.1); CARBON DIOXIDE LEVEL 29 MMOL/L (20-31); CHLORIDE LEVEL 105 MMOL/L (98-107); CREATININE FOR GFR 0.68 MG/DL (0.55-1.30); GLOMERULAR FILTRATION RATE > 90.0 (>60); OPIATES URINE POSITIVE (NEGATIVE); POTASSIUM SERUM 4.4 MMOL/L (3.5-5.1); SODIUM LEVEL 142 MMOL/L (136-145)
== END 2025-03-14 22:15 | disposition home or self-care (01) ==
LOC: M ED 18:09 → EDBD 18:09 → M ED 22:15
DX: R51.9 Headache, unspecified (principal); I51.9 Heart disease, unspecified; K21.9 Gastro-esophageal reflux disease without esophagitis; Z79.01 Long term (current) use of anticoagulants; Z79.899 Other long term (current) drug therapy; Z88.5 Allergy status to narcotic agent; Z88.8 Allergy status to other drugs, medicaments and biological substances
CPT/HCPCS: 70450; 80048; 80307; 85025; 85610; 96361; 96374; 96375; 99284; J1200; J1885; J2765

== ENCOUNTER 2025-04-07 03:12 | Emergency (ER) | payer OTHER ==
[~2025-04-07] VITALS: Ht 162.6 cm; Wt 64.9 kg
[~2025-04-07 03:12] MED LIST changes: -SODI88SP; +SODI88SP7
[2025-04-07 03:20] VITALS: TEMP 98.4
[2025-04-07 03:39] LABS: BASO # 0.0 10^3/uL (0.0-0.2); BASO % 0.1 % (0.0-1.0); EOS # 0.1 10^3/uL (0.0-0.5); EOS % 0.6 % (0.0-3.0); LYMPH # 2.7 10^3/uL (1.5-5.0); LYMPH % 33.3 % (24.0-44.0); MONO # 0.5 10^3/uL (0.0-0.8); MONO % 6.4 % (2.0-8.0); NEUTROPHILS # 4.8 10^3/uL (1.5-8.5); NEUTROPHILS % 59.5 % (36.0-66.0); PLATELET COUNT, AUTOMATED 243 10^3/uL (150-450)
[2025-04-07 03:53] LABS: HCG, SERUM QUALITATIVE NEGATIVE (NEGATIVE)
[2025-04-07 04:02] LABS: CALCIUM LEVEL 8.2 MG/DL (8.5-10.1); CARBON DIOXIDE LEVEL 23 MMOL/L (20-31); CHLORIDE LEVEL 108 MMOL/L (98-107); CREATININE FOR GFR 0.61 MG/DL (0.55-1.30); GLOMERULAR FILTRATION RATE > 90.0 (>60); MAGNESIUM LEVEL 1.6 MG/DL (1.8-2.4); POTASSIUM SERUM 3.2 MMOL/L (3.5-5.1); SODIUM LEVEL 142 MMOL/L (136-145)
[2025-04-07 04:15] VITALS: BP 101/66
[2025-04-07] MEDS: MAG SULF 1GM/100ML (MAG RUN) 1 GM in IV 1 EA IV ONE (04:15)
[2025-04-07] MEDS: POTASSIUM CHLORIDE 10% LIQ 20MEQ/15ML UDC PO ONE (04:15)
[2025-04-07] MEDS: NS 500 ML IV ONE (04:15)
[2025-04-07] MEDS: ACETAMINOPHEN *IV* 1,000 MG in IV 1 EA IV ONE (04:16)
[2025-04-07 05:12] LABS: CK-MB VALUE MASS 2.3 NG/ML (<3.6)
[2025-04-07 05:14] LABS: CPK CREATINE PHOSPHOKINASE 209.0 U/L (34-145); MB/CK RELATIVE INDEX 1.1 (< OR =4)
[2025-04-07 05:15] VITALS: O2SAT 99
[2025-04-09] MEDS ORDERED: VITA100093 (07:38)
== END 2025-04-07 05:53 | disposition home or self-care (01) ==
LOC: EDBD 03:12 → M ED 03:12
DX: E87.6 Hypokalemia (principal); E83.42 Hypomagnesemia; Z86.718 Personal history of other venous thrombosis and embolism; K21.9 Gastro-esophageal reflux disease without esophagitis; F32.A Depression, unspecified; Z90.49 Acquired absence of other specified parts of digestive tract; Z79.01 Long term (current) use of anticoagulants; Z88.8 Allergy status to other drugs, medicaments and biological substances; R00.0 Tachycardia, unspecified; Z79.899 Other long term (current) drug therapy
CPT/HCPCS: 71045; 80048; 82330; 82550; 82553; 83735; 84484; 84703; 85025; 85379; 93005; 96365; 96368; 99284; J0134; J3475